=== PATIENT | female | born 1970 | race Caucasian/White ===

== ENCOUNTER 2018-08-03 21:32 | Inpatient (IN) | payer OTHER ==
--- NOTE | 2018-08-03 22:42 | PDOC ---
History of Present Illness <Roxanne Kwan - Last Filed: 08/04/18 02:16> - General History Source: Patient Exam Limitations: No Limitations - History of Present Illness Initial Comments: 08/03/18 22:23 Patient is a 47 year old female with h/o cholecystectomy, chronic back pain, anxiety, depression, hammer toe surgery c/o nausea, vomiting, upper abdominal pain x 4 days. Pain is in the epigastric area and radiates to the back 10/10 sharp, stabbing, continuous. States that she had dark urine on Sunday and Sunday of this week, now clear straw color. She has been having many episode of bilious vomiting since Sunday. She has also been having on color stools. Patient is status post cholecystectomy on 06/18/18 at [facility]. Postoperatively states she has no complications until 4 days ago. States that every time that she drinks milk or have fatty foods she has upper abdominal pain. Patient had postop follow-up on July 11 and was told every thing was normal. Next scheduled postop care is August 22. She denies any fever, chills, dysuria. PMD: Dr. Longoria PMHX: as above PSOCHX: (+) cig 3/day, neg etoh, neg drug ALL: NKDA GENERAL/CONSTITUTIONAL: No fever or chills. No weakness. No weight change. HEAD, EYES, EARS, NOSE AND THROAT: No change in vision. No ear pain or discharge. No sore throat. CARDIOVASCULAR: No chest pain or shortness of breath. RESPIRATORY: No cough, wheezing, or hemoptysis. GASTROINTESTINAL: (+) nausea, vomiting, diarrhea or constipation. No rectal bleeding. GENITOURINARY: No dysuria, frequency, or change in urination. MUSCULOSKELETAL: No joint or muscle swelling or pain. No neck or back pain. SKIN AND BREASTS: No rash or easy bruising. NEUROLOGIC: No headache, vertigo, loss of consciousness, or loss of sensation. PSYCHIATRIC: No depression or anxiety. ENDOCRINE: No increased thirst. No abnormal weight change. HEMATOLOGIC/LYMPHATIC: No anemia, easy bleeding, or history of blood clots. ALLERGIC/IMMUNOLOGIC: No hives or skin allergy. No latex allergy. GENERAL: The patient is awake, alert, and fully oriented, in moderate distress. HEAD: Normal with no signs of trauma. EYES: Pupils equal, round and reactive to light, extraocular movements intact, sclera icteric, conjunctiva normal. ENT: Ears normal, nares patent, oropharynx clear without exudates. Moist mucous membranes. NECK: Normal range of motion, supple without lymphadenopathy, JVD, or masses. LUNGS: Breath sounds equal, clear to auscultation bilaterally. No wheezes, and no crackles. HEART: Regular rate and rhythm, normal S1 and S2 without murmur, rub. ABDOMEN: Soft, (+) tenderness to the epigastrium and back, (+) distention, normoactive bowel sounds. No guarding, no rebound. No masses. EXTREMITIES: Normal range of motion, no edema. No clubbing or cyanosis. No cords, erythema, or tenderness. NEUROLOGICAL: Cranial nerves II through XII grossly intact. Normal speech, normal gait. PSYCH: Normal mood, normal affect. SKIN: mildly jaundiced, Warm, Dry, normal turgor, no rashes or lesions noted. <Dyllan Welch - Last Filed: 08/04/18 03:10> - General Chief Complaint: Nausea/Vomiting Stated Complaint: VOMITING Past History <Roxanne Kwan - Last Filed: 08/04/18 02:16> - Suicide/Smoking/Psychosocial Hx Smoking History: Current every day smoker Number of Cigarettes Smoked Daily: 3 Information on smoking cessation initiated: Yes Hx Alcohol Use: No Drug/Substance Use Hx: No <Dyllan Welch - Last Filed: 08/04/18 03:10> - Past Medical History Allergies/Adverse Reactions: Allergies Allergy/AdvReac Type Severity Reaction Status Date / Time No Known Allergies Allergy Verified 08/04/18 03:07 Home Medications: Ambulatory Orders Levomilnacipran HCl [Fetzima] 80 mg PO DAILY 08/04/18 Losartan Potassium 100 mg PO DAILY 08/04/18 *Physical Exam - Vital Signs Last Vital Signs Temp Pulse Resp BP Pulse Ox 98 F 85 20 145/89 97 08/03/18 21:37 08/03/18 21:37 08/03/18 21:37 08/03/18 21:37 08/03/18 21:37 <Roxanne Kwan - Last Filed: 08/04/18 02:16> - Vital Signs Last Vital Signs Temp Pulse Resp BP Pulse Ox 98 F 85 20 145/89 97 08/03/18 21:37 08/03/18 21:37 08/03/18 21:37 08/03/18 21:37 08/03/18 21:37 <Dyllan Welch - Last Filed: 08/04/18 03:10> ED Treatment Course - LABORATORY CBC & Chemistry Diagram: 08/03/18 22:50 08/03/18 22:50 - ADDITIONAL ORDERS Additional order review: Laboratory Results 08/03/18 08/03/18 22:50 22:50 Sodium 138 Potassium 3.5 Chloride 102 Carbon Dioxide 27 Anion Gap 9 BUN 9.5 Creatinine 0.6 Est GFR (CKD-EPI)AfAm 127.58 Est GFR (CKD-EPI)NonAf 110.08 Random Glucose 127 H Calcium 9.5 Total Bilirubin 2.8 H AST 401 H ALT 624 H Alkaline Phosphatase 563 H Total Protein 7.3 Albumin 3.9 Total Amylase 123 H Lipase 2489 H Serum , Qual Negative 08/03/18 22:50 RBC 4.60 MCV 90.8 MCHC 33.8 RDW 14.4 MPV 12.3 H Neutrophils % 72.3 Lymphocytes % 21.7 Monocytes % 4.7 Eosinophils % 0.3 Basophils % 1.0 - RADIOLOGY Radiology Studies Ordered: Category Date Time Status ABDOMEN US -LIMITED [US] Stat Ultrasound 08/04/18 01:50 Taken <Roxanne Kwan - Last Filed: 08/04/18 02:16> - LABORATORY CBC & Chemistry Diagram: 08/03/18 22:50 08/03/18 22:50 <Dyllan Welch - Last Filed: 08/04/18 03:10> Medical Decision Making - Medical Decision Making 08/04/18 02:16 Patient Name: DOMINICK JAVIER THIS IS A PRELIMINARY REPORT FROM [facility] DATE OF SERVICE: 2018-08-04 01:52:32 IMAGES: 35 EXAM: ABDOMEN US -LIMITED , right upper quadrant and limited abdominal duplex HISTORY: Right upper quadrant pain COMPARISON: None. FINDINGS: Right upper quadrant ultrasound:The liver demonstrates minimal biliary duct dilation. Status post cholecystectomy. The CBD is dilated and [id number] millimeters in diameter. No CBD stones identified. Right kidney measures 10.9centimeters in length and is unremarkable. The visualized aorta and IVC are normal. Pancreas is partially obscured, but appears normal. Abdominal duplex: The main portal vein demonstrates normal hepatopedal flow. IMPRESSION: Moderate CBD dilation and minimal intrahepatic biliary duct dilation without a discrete CBD stone identified. <Roxanne Kwan - Last Filed: 08/04/18 02:16> - Medical Decision Making 08/03/18 22:23 Patient is a 47 year old female with h/o cholecystectomy, chronic back pain, anxiety, depression, hammer toe surgery c/o nausea, vomiting, upper abdominal pain x 4 days. Pain is in the epigastric area and radiates to the back 10/ sharp, stabbing, continuous. States that she had dark urine on Sunday and Sunday of this week, now clear straw color. She has been having many episode of bilious vomiting since Sunday. She has also been having on color stools. Patient is status post cholecystectomy on 06/18/18 at [facility]. Postoperatively states she has no complications until 4 days ago. States that every time that she drinks milk or have fatty foods she has upper abdominal pain. Patient had postop follow-up on July 11 and was told every thing was normal. Next scheduled postop care is August 22. She denies any fever, chills, dysuria. Patient is post operative cystectomy but with symptoms consistent with pancreatitis, obstruction of billary duct We'll get labs, CT abdomen and pelvis. Possible admission Refused pain meds currently. 08/04/18 00:59 Patient Full Name: CONCEPCION TAN Patient Accession No: [id number] Patient : 1970 Reason for Exam: r/o pancreatitis Referring Physician: Patient Name: DOMINICK JAVIER THIS IS A PRELIMINARY REPORT FROM [facility] DATE OF SERVICE: 2018-08-04 00:25:46 IMAGES: 466 EXAM: ABDOMEN \T\ PELVIS CT WITH CONTR HISTORY: Rule out pancreatitis COMPARISON: None. FINDINGS: Lung bases are clear. The visualized cardiac chambers are normal size and configuration. Status post cholecystectomy. There is mild hepatic biliary duct dilation and periportal edema. The common bile duct is dilated to 1.3 cm. No radiopaque CBD stones identified. There is mild dilation of the pancreatic duct up to 3 mm. No pancreatic inflammation. Normal spleen, adrenal glands and kidneys. The stomach and abdominal small and large bowel are normal. There is no aortic aneurysm. There is no significant retroperitoneal lymphadenopathy. The pelvic small and large bowel are normal. The appendix is normal. The uterus and adnexal structures are normal. Urinary bladder is unremarkable. There is no pelvic free fluid. No discrete pelvic lymphadenopathy is identified. IMPRESSION: Moderate CBD dilation and mild hepatic biliary duct and pancreas duct dilation and mild periportal edema but no pancreatic inflammation or discrete CBD stone. Postoperative CBD stricture is considered. One or more of the following dose reduction techniques were used: automated exposure control, adjustment of the mA and/or kV according to patient size, use of iterative reconstructive technique. THIS DOCUMENT HAS BEEN ELECTRONICALLY SIGNED Charlie Nguyen MD 08/04/2018 00:53 BARBARA Mustafa Please call [facility] In[facility] [phone] with questions. INTERPRETING RADIOLOGIST: Lizandro Nguyen MD Electronically Signed: Aug 04, 2018 12:54AM EDT 08/04/18 01:00 Laboratory Tests 08/03/18 08/03/18 22:50 22:50 WBC 7.3 Hgb 14.1 Hct 41.7 Plt Count 181 Sodium 138 Potassium 3.5 Chloride 102 Carbon Dioxide 27 Anion Gap 9 BUN 9.5 Creatinine 0.6 Random Glucose 127 H Calcium 9.5 Total Bilirubin 2.8 H AST 401 H ALT 624 H Alkaline Phosphatase 563 H Total Amylase 123 H Lipase 2489 H 08/04/18 03:04 Patient Full Name: CONCEPCION TAN Patient Accession No: [id number] Patient : 1970 Reason for Exam: ruq pain Referring Physician: ARIELLE DURON Patient Name: DOMINICK JAVIER THIS IS A PRELIMINARY REPORT FROM [facility] DATE OF SERVICE: 2018-08-04 01:52:32 IMAGES: 35 EXAM: ABDOMEN US -LIMITED , right upper quadrant and limited abdominal duplex HISTORY: Right upper quadrant pain COMPARISON: None. FINDINGS: Right upper quadrant ultrasound:The liver demonstrates minimal biliary duct dilation. Status post cholecystectomy. The CBD is dilated and [id number] millimeters in diameter. No CBD stones identified. Right kidney measures 10.9centimeters in length and is unremarkable. The visualized aorta and IVC are normal. Pancreas is partially obscured, but appears normal. Abdominal duplex: The main portal vein demonstrates normal hepatopedal flow. IMPRESSION: Moderate CBD dilation and minimal intrahepatic biliary duct dilation without a discrete CBD stone identified. THIS DOCUMENT HAS BEEN ELECTRONICALLY SIGNED Charlie Nguyen MD 08/04/2018 02:11 BARBARA Schultz. Please call [facility] Instructor [phone] with questions. INTERPRETING RADIOLOGIST: Lizandro Nguyen MD Electronically Signed: Aug 04, 2018 02:13AM EDT 08/04/18 03:08 Patient admitted to the hospitalist <Dyllan Welch - Last Filed: 08/04/18 03:10> *DC/Admit/Observation/Transfer <Roxanne Kwan - Last Filed: 08/04/18 02:16> - Discharge Dispostion Decision to Admit order: Yes <Dyllan Welch - Last Filed: 08/04/18 03:10> Diagnosis at time of Disposition: Transaminitis Nausea & vomiting Qualifiers: Vomiting type: bilious vomiting Qualified Code(s): R11.14 - Bilious vomiting Abdominal pain Qualifiers: Abdominal location: epigastric Qualified Code(s): R10.13 - Epigastric pain - Discharge Dispostion Condition at time of disposition: Stable
[2018-08-03] MEDS ORDERED: ONDANSETRON 4 MG/2 ML VIAL IVPUSH ONE (22:48)
[2018-08-03] MEDS ORDERED: SODIUM CHLORIDE 0.9% 500 ML INFUS.BAG IV ONE (22:48)
[2018-08-03] MEDS ORDERED: ONDANSETRON 4 MG/2 ML VIAL ONE (23:04)
[2018-08-03 23:10] LABS: EOS % 0.3 % (0-4.5); HEMATOCRIT 41.7 % (32.4-45.2); HEMOGLOBIN 14.1 GM/dL (10.7-15.3); LYMPH % 21.7 % (8-40); MCH 30.7 pg (25.7-33.7); MCHC 33.8 g/dl (32.0-36.0); MEAN CELL VOLUME 90.8 fl (80-96); MEAN PLT VOLUME 12.3 fl (7.5-11.1); MONO % 4.7 % (3.8-10.2); NEUT % 72.3 % (42.8-82.8); PLATELET COUNT 181 K/MM3 (134-434); RDW 14.4 % (11.6-15.6); WHITE BLOOD COUNT 7.3 K/mm3 (4.0-10.0)
[2018-08-03 23:27] LABS: ALBUMIN 3.9 g/dl (3.4-5.0); BILIRUBIN,TOTAL 2.8 mg/dL (0.2-1); BLOOD UREA NITROGEN 9.5 mg/dL (7-18); CALCIUM 9.5 mg/dL (8.5-10.1); CREATININE 0.6 mg/dL (0.55-1.3); POTASSIUM 3.5 mmol/L (3.5-5.1); TOT PROT 7.3 g/dl (6.4-8.2)
[2018-08-04] MEDS ORDERED: morphine CARPU-JECT 2 MG/1 ML DISP.SYRIN IVPUSH ONE (02:17)
[2018-08-04] MEDS ORDERED: MORPHINE SULFATE 2 MG/ML VIAL IVPUSH ONE (02:17)
[2018-08-04] MEDS ORDERED: morphine SULFATE 4 MG/ML VIAL ONE (02:22)
--- NOTE | 2018-08-04 03:04 | HP ---
Admitting History and Physical - Primary Care Physician PCP: Silvia Matta - Admission Chief Complaint: c/o nausea, vomiting, upper abd/epigastric abdominal pain radiating to back History of Present Illness: 47 year old female with PMHX of HTN, anxiety, depression, chronic back pain, past surgical history cholecystectomy ( at [facility] with Dr. caballero) Patient post cholecystectomy had no acute complication during sx , had follow up July 11 with normal finding next visit scheduled postop care is August. Patient arrived to ED today with c/o of nausea, vomiting, upper abdominal pain. Pain starts at epigastric area and radiates to the back 10/10 sharp, stabbing, continuous pain. As per patient had dark urine initially on Sunday and Sunday of this week, now clear. She has been having bilious/brownish kind of vomiting since Sunday. No vomiting noted since in ED. History Source: Patient Limitations to Obtaining History: No Limitations - Past Medical History Cardiovascular: Yes: HTN Gastrointestinal: Yes: Other (s/p cholecystomy june) Psych: Yes: Anxiety, Depression Musculoskeletal: Yes: Chronic low back pain - Past Surgical History Past Surgical History: Yes: Cholecystectomy (june) - Smoking History Smoking history: Current every day smoker Aproximately how many cigarettes per day: 3 - Alcohol/Substance Use Hx Alcohol Use: No History of Substance Use: reports: None - Social History ADL: Independent History of Recent Travel: No Home Medications - Allergies Allergies/Adverse Reactions: Allergies Allergy/AdvReac Type Severity Reaction Status Date / Time No Known Allergies Allergy Verified 08/04/18 03:07 - Home Medications Home Medications: Ambulatory Orders Diltiazem HCl [Diltiazem 24Hr Cd] 180 mg PO DAILY 08/04/18 Ibuprofen 800 mg PO PRN PRN 08/04/18 Levomilnacipran HCl [Fetzima] 80 mg PO DAILY 08/04/18 Losartan Potassium 100 mg PO DAILY 08/04/18 Mirtazapine [Remeron -] 45 mg PO DAILY 08/04/18 Family Disease History - Family Disease History Family Disease History: Diabetes: Father, Heart Disease: Father, Mother (breast ca), Other: Mother Review of Systems - Review of Systems Constitutional: reports: No Symptoms Eyes: reports: No Symptoms HENT: reports: No Symptoms Neck: reports: No Symptoms Cardiovascular: reports: No Symptoms Respiratory: reports: No Symptoms Gastrointestinal: reports: Abdominal Pain, Vomiting Genitourinary: reports: Burning, Flank Pain, Urgency Breasts: reports: No Symptoms Reported Musculoskeletal: reports: Back Pain Integumentary: reports: No Symptoms Neurological: reports: No Symptoms Endocrine: reports: No Symptoms Hematology/Lymphatic: reports: No Symptoms Psychiatric: reports: Anxiety, Depression Physical Examination Vital Signs: Vital Signs Temperature 98 F 08/03/18 21:37 Pulse Rate 85 08/03/18 21:37 Respiratory Rate 20 08/03/18 21:37 Blood Pressure 145/89 08/03/18 21:37 O2 Sat by Pulse Oximetry (%) 97 08/03/18 21:37 Constitutional: Yes: Well Nourished, Anxious Eyes: Yes: WNL, Conjunctiva Clear, EOM Intact HENT: Yes: WNL, Atraumatic, Normocephalic Neck: Yes: WNL, Supple, Trachea Midline Cardiovascular: Yes: WNL, Regular Rate and Rhythm Respiratory: Yes: WNL, Regular, CTA Bilaterally Gastrointestinal: Yes: Soft, Tenderness, Tenderness, Epigastrium, Vomiting Renal/: Yes: CVA Tenderness - Left, CVA Tenderness - Right Musculoskeletal: Yes: Back Pain Extremities: Yes: WNL Edema: No Integumentary: Yes: WNL Neurological: Yes: WNL, Alert, Oriented Labs: CBC, BMP 08/03/18 22:50 08/03/18 22:50 Problem List - Problems (1) Right upper quadrant abdominal pain Assessment/Plan: EXAM: ABDOMEN \T\ PELVIS CT WITH CONTR HISTORY: Rule out pancreatitis COMPARISON: None. FINDINGS: Lung bases are clear. The visualized cardiac chambers are normal size and configuration. Status post cholecystectomy. There is mild hepatic biliary duct dilation and periportal edema. The common bile duct is dilated to 1.3 cm. No radiopaque CBD stones identified. There is mild dilation of the pancreatic duct up to 3 mm. No pancreatic inflammation. Normal spleen, adrenal glands and kidneys. The stomach and abdominal small and large bowel are normal. There is no aortic aneurysm. There is no significant retroperitoneal lymphadenopathy. The pelvic small and large bowel are normal. The appendix is normal. The uterus and adnexal structures are normal. Urinary bladder is unremarkable. There is no pelvic free fluid. No discrete pelvic lymphadenopathy is identified. IMPRESSION: Moderate CBD dilation and mild hepatic biliary duct and pancreas duct dilation and mild periportal edema but no pancreatic inflammation or discrete CBD stone. Postoperative CBD stricture is considered. One or more of the following dose reduction techniques were used: automated exposure control, adjustment of the mA and/or kV according to patient size, use of iterative reconstructive technique. EXAM: ABDOMEN US -LIMITED , right upper quadrant and limited abdominal duplex HISTORY: Right upper quadrant pain COMPARISON: None. FINDINGS: Right upper quadrant ultrasound:The liver demonstrates minimal biliary duct dilation. Status post cholecystectomy. The CBD is dilated and millimeters in diameter. No CBD stones identified. Right kidney measures 10.9centimeters in length and is unremarkable. The visualized aorta and IVC are normal. Pancreas is partially obscured, but appears normal. Abdominal duplex: The main portal vein demonstrates normal hepatopedal flow. IMPRESSION: Moderate CBD dilation and minimal intrahepatic biliary duct dilation without a discrete CBD stone identified. - pain management - IV fluids 1 L given in ED, continue IVF - Zofran IV puah 4 mg q6 prn - follow up GI and surgery consult - Code(s): R10.11 - RIGHT UPPER QUADRANT PAIN (2) Common bile duct (CBD) stricture Assessment/Plan: EXAM: ABDOMEN \T\ PELVIS CT WITH CONTR HISTORY: Rule out pancreatitis COMPARISON: None. FINDINGS: Lung bases are clear. The visualized cardiac chambers are normal size and configuration. Status post cholecystectomy. There is mild hepatic biliary duct dilation and periportal edema. The common bile duct is dilated to 1.3 cm. No radiopaque CBD stones identified. There is mild dilation of the pancreatic duct up to 3 mm. No pancreatic inflammation. Normal spleen, adrenal glands and kidneys. The stomach and abdominal small and large bowel are normal. There is no aortic aneurysm. There is no significant retroperitoneal lymphadenopathy. The pelvic small and large bowel are normal. The appendix is normal. The uterus and adnexal structures are normal. Urinary bladder is unremarkable. There is no pelvic free fluid. No discrete pelvic lymphadenopathy is identified. IMPRESSION: Moderate CBD dilation and mild hepatic biliary duct and pancreas duct dilation and mild periportal edema but no pancreatic inflammation or discrete CBD stone. Postoperative CBD stricture is considered. One or more of the following dose reduction techniques were used: automated exposure control, adjustment of the mA and/or kV according to patient size, use of iterative reconstructive technique. EXAM: ABDOMEN US -LIMITED , right upper quadrant and limited abdominal duplex HISTORY: Right upper quadrant pain COMPARISON: None. FINDINGS: Right upper quadrant ultrasound:The liver demonstrates minimal biliary duct dilation. Status post cholecystectomy. The CBD is dilated and millimeters in diameter. No CBD stones identified. Right kidney measures 10.9centimeters in length and is unremarkable. The visualized aorta and IVC are normal. Pancreas is partially obscured, but appears normal. Abdominal duplex: The main portal vein demonstrates normal hepatopedal flow. IMPRESSION: Moderate CBD dilation and minimal intrahepatic biliary duct dilation without a discrete CBD stone identified. - pain management - IV fluids 1 L given in ED - Zofran IV puah 4 mg q6 prn - follow up LFts, Lipase, amylase trend - follow up GI and surgery consult - Code(s): K83.1 - OBSTRUCTION OF BILE DUCT (3) Vomiting Assessment/Plan: Vomiting - IV fluids - zofran PRN - Code(s): R11.10 - VOMITING, UNSPECIFIED Qualifiers: Vomiting type: bilious vomiting (4) HTN (hypertension) Assessment/Plan: HTN - Continue with Diltiazem and losartan - monitor vitals Code(s): I10 - ESSENTIAL (PRIMARY) HYPERTENSION (5) Depression Assessment/Plan: Depression - continue with Fetzima and Remeron as ordered - monitor for acute behavioral changes Code(s): F32.9 - MAJOR DEPRESSIVE DISORDER, SINGLE EPISODE, UNSPECIFIED Assessment/Plan 47 year old admiited for CBD stricture, s/p cholecystomy , arrived to ED with sharp constant pain upper/epigastric CT abd/pelvis IMPRESSION: Moderate CBD dilation and mild hepatic biliary duct and pancreas duct dilation and mild periportal edema but no pancreatic inflammation or discrete CBD stone. Postoperative CBD stricture is considered. EXAM: ABDOMEN US -LIMITED , right upper quadrant IMPRESSION: Moderate CBD dilation and minimal intrahepatic biliary duct dilation without a discrete CBD stone identified. - pain management - IV fluids 1 L given in ED - Zofran IV puah 4 mg q6 prn - follow LFTs, lipase, amylase - follow up GI and surgery consult HTN - Continue with losartan and diltiazem Depression - Continue with remeron and fetzima - Visit type - Emergency Visit Emergency Visit: Yes Care time: The patient presented to the Emergency Department on the above date and was hospitalized for further evaluation of their emergent condition. - New Patient This patient is new to me today: Yes Date on this admission: 08/04/18 - Critical Care Critical Care patient: No
[2018-08-04] MEDS ORDERED: ONDANSETRON 4 MG/2 ML VIAL IVPUSH SCH (04:00)
[2018-08-04 09:49] LABS: BASO % 0.7 % (0-2.0); EOS % 1.8 % (0-4.5); HEMATOCRIT 36.1 % (32.4-45.2); HEMOGLOBIN 12.2 GM/dL (10.7-15.3); LYMPH % 38.3 % (8-40); MCH 30.9 pg (25.7-33.7); MCHC 33.9 g/dl (32.0-36.0); MEAN CELL VOLUME 91.2 fl (80-96); MEAN PLT VOLUME 11.8 fl (7.5-11.1); MONO % 9.1 % (3.8-10.2); NEUT % 50.1 % (42.8-82.8); RBC 3.96 M/mm3 (3.60-5.2); WHITE BLOOD COUNT 5.2 K/mm3 (4.0-10.0)
[2018-08-04] MEDS ORDERED: LEVOMILNACIPRAN HCL 80 MG PO SCH (10:00)
[2018-08-04 10:02] LABS: INR 1.03 (0.83-1.09); PROTHROMBIN TIME (PATIENT) 12.1 SEC (9.7-13.0)
[2018-08-04 10:05] LABS: ACTIVATED PTT 30.1 SECONDS (25.2-36.5)
[2018-08-04 10:10] LABS: ALBUMIN 3.2 g/dl (3.4-5.0); BILIRUBIN,TOTAL 3.6 mg/dL (0.2-1); BLOOD UREA NITROGEN 7.5 mg/dL (7-18); CALCIUM 8.8 mg/dL (8.5-10.1); CREATININE 0.6 mg/dL (0.55-1.3); POTASSIUM 3.1 mmol/L (3.5-5.1)
--- NOTE | 2018-08-04 10:20 | CON.GI ---
Consult Consult Specialty:: GI Referred by:: Hospitalist Service Reason for Consultation:: Abdominal pain and abnormal liver chemistries - History of Present Illness Chief Complaint: Episodic abdominal pain after eating History of Present Illness: 47F admitted through [facility] ER for evaluation of nausea, vomiting and upper abdominal pain. Her pain began early yesterday after drinking coffee with milk. It persisted through the day and became much worse along with the associated nausea and vomiting after eating chicken parmigiana and chicken soup. She had similar abdominal discomfort after eating this past sunday and intermittently since her Lap Mirlande 04/23 at [facility] but not to this extent. Her appetite has been diminished since the surgery. Her urine was also noted dark yesterday. In ED, tranasminases were elevated as was ALP and bilirubin. Vitals were stable and she was afebrile. She had a CT scan revealing dilated CBD and and US confirming dilated CBD of 13mm along with dilated intrahepatic ducts. She continues to have pain but to a lesser degree. She believes that she had an EGD and colonoscopy some years ago that were OK. There is no family history of pancreatic cancer, colon cancer or other GI cancer. - History Source History Provided By: Patient - Past Medical History Cardio/Vascular: Yes: HTN Hepatobiliary: Yes: Cholelithiasis ...LMP: 07/05/18 ...: No Psych: Yes: Anxiety, Depression, Panic Musculoskeletal: Yes: Chronic low back pain - Past Surgical History Past Surgical History: Yes: Cholecystectomy (june) Additional Surgical History: Lumbar spine surgery, hammer toe surgery b/l feet - Alcohol/Substance Use Hx Alcohol Use: No History of Substance Use: reports: None - Smoking History Smoking history: Current every day smoker Aproximately how many cigarettes per day: 3 - Social History Usual Living Arrangement: Alone ADL: Independent Occupation: Unemployed Place of : [facility] History of Recent Travel: No Home Medications - Allergies Allergies/Adverse Reactions: Allergies Allergy/AdvReac Type Severity Reaction Status Date / Time No Known Allergies Allergy Verified 08/04/18 03:07 - Home Medications Home Medications: Ambulatory Orders Diltiazem HCl [Diltiazem 24Hr Cd] 180 mg PO DAILY 08/04/18 Ibuprofen 800 mg PO PRN PRN 08/04/18 Levomilnacipran HCl [Fetzima] 80 mg PO DAILY 08/04/18 Losartan Potassium 100 mg PO DAILY 08/04/18 Mirtazapine [Remeron -] 45 mg PO DAILY 08/04/18 Family Disease History - Family Disease History Family Disease History: Diabetes: Father (: 68: Some form of cancer (not GI) ), Heart Disease: Father, Mother (Mother: : 78: Heart Problems. H&P lists breast cancer, however she did not tell that liza me.), Other: Father, Mother, Brother (2, healthy), Sister (1, healthy), Daughter (1, healthy) Review of Systems - Review of Systems Constitutional: reports: Loss of Appetite. denies: Chills Cardiovascular: denies: Chest Pain Respiratory: denies: SOB Gastrointestinal: reports: Abdominal Pain, Constipation, Indigestion, Nausea, Vomiting. denies: Diarrhea, Dysphagia, Melena, Rectal Bleeding Psychiatric: reports: Anxiety, Depression Physical Exam-GI Vital Signs: Vital Signs Temperature 98.5 F 08/04/18 04:50 Pulse Rate 61 08/04/18 04:50 Respiratory Rate 18 08/04/18 04:50 Blood Pressure 125/74 08/04/18 04:50 O2 Sat by Pulse Oximetry (%) 100 08/04/18 04:14 Constitutional: Yes: Calm Eyes: No: Sclera Icterus Cardiovascular: Yes: Regular Rate and Rhythm Respiratory: Yes: CTA Bilaterally Gastrointestinal Inspection: Yes: Scars (healed upper abdominal trochar scars). No: Distention ...Auscultate: Yes: Normoactive Bowel Sounds ...Palpate: Yes: Soft, Tenderness (TTP mid upper abdomen) ...Percussion: No: Tympanitic Edema: No (No LE edema) Neurological: Yes: Alert Labs: CBC, BMP 08/04/18 09:20 INR, PTT INR 1.03 (0.83-1.09) 08/04/18 09:20 Hepatic Panel Total Bilirubin 3.6 mg/dL (0.2-1) H 08/04/18 09:20 AST 520 U/L (15-37) H 08/04/18 09:20 ALT 696 U/L (13-61) H 08/04/18 09:20 Alkaline Phosphatase 473 U/L (45-117) H 08/04/18 09:20 Albumin 3.2 g/dl (3.4-5.0) L 08/04/18 09:20 Imaging - Results Cat Scan: Image Reviewed Ultrasound: Report Reviewed Problem List - Problems (1) Acute gallstone pancreatitis Assessment/Plan: Suspect retained CBD stone as the cause of Ms. Martins's current problems as well as her intermittent post lap mirlande post prandial dyspeptic complaints. Bilirubin has risen on today's labs. Discussed ERCP with Ms. Martins for further evaluation, stone extraction if necessary and to exclude alternate pathology such as stricture. DIscussed potential risks of the procedure like but not limited to bleeding, perforation requiring surgery to repair, infection, sedation medication effects, worsening of pancreatitis (5-10% of cases per the literature) all of which could be potentially life threatening. She has agreed to the procedure. She was given a diet this morning and drank coffee/had some eggs. This makes intubation more risky at this time. Plan for ERCP tomorrow, later in the day with the patient being NPO if clinically warranted Advise: NPO except meds IV hydration: ordered LR @ 200cc per hour Added Zosyn 3.375g q 8 hours for biliary tract coverage, not so much the pancreatitis AM Labs Type and cross, coags ordered today Code(s): K85.10 - BILIARY ACUTE PANCREATITIS WITHOUT NECROSIS OR INFECTION
--- NOTE | 2018-08-04 10:25 | PN ---
Progress Note, Physician - Current Medication List Current Medications: Active Medications Diltiazem HCl (Cardizem Cd -) 180 mg PO DAILY LOR Losartan Potassium (Cozaar -) 100 mg PO DAILY LOR Mirtazapine (Remeron -) 45 mg PO HS LOR Non-Formulary Medication (Levomilnacipran Hcl [Fetzima]) 80 mg PO DAILY LOR Ondansetron HCl (Zofran Injection) 4 mg IVPUSH Q6H-IV LOR - Objective Vital Signs: Vital Signs Temperature 98.5 F 08/04/18 04:50 Pulse Rate 61 08/04/18 04:50 Respiratory Rate 18 08/04/18 04:50 Blood Pressure 125/74 08/04/18 04:50 O2 Sat by Pulse Oximetry (%) 100 08/04/18 04:14 Labs: CBC, BMP 08/04/18 09:20 08/04/18 09:20 INR, PTT INR 1.03 (0.83-1.09) 08/04/18 09:20 - ....Imaging Cat Scan: Report Reviewed (ABDOMEN \T\ PELVIS CT WITH CONTR HISTORY: Rule out pancreatitis COMPARISON: None. FINDINGS: Lung bases are clear. The visualized cardiac chambers are normal size and configuration. Status post cholecystectomy. There is mild hepatic biliary duct dilation and periportal edema. The common bile duct is dilated to 1.3 cm. No radiopaque CBD stones identified. There is mild dilation of the pancreatic duct up to 3 mm. No pancreatic inflammation. Normal spleen, adrenal glands and kidneys. The stomach and abdominal small and large bowel are normal. There is no aortic aneurysm. There is no significant retroperitoneal lymphadenopathy. The pelvic small and large bowel are normal. The appendix is normal. The uterus and adnexal structures are normal. Urinary bladder is unremarkable. There is no pelvic free fluid. No discrete pelvic lymphadenopathy is identified. IMPRESSION: Moderate CBD dilation and mild hepatic biliary duct and pancreas duct dilation and mild periportal edema but no pancreatic inflammation or discrete CBD stone. Postoperative CBD stricture is considered. One or more of the following dose reduction techniques were used: automated exposure control, adjustment of the mA and/or kV according to patient size, use of iterative reconstructive technique. EXAM: ABDOMEN US -LIMITED , right upper quadrant and limited abdominal duplex HISTORY: Right upper quadrant pain COMPARISON: None. FINDINGS: Right upper quadrant ultrasound:The liver demonstrates minimal biliary duct dilation. Status post cholecystectomy. The CBD is dilated and [id number] millimeters in diameter. No CBD stones identified. Right kidney measures 10.9centimeters in length and is unremarkable. The visualized aorta and IVC are normal. Pancreas is partially obscured, but appears normal. Abdominal duplex: The main portal vein demonstrates normal hepatopedal flow. IMPRESSION: Moderate CBD dilation and minimal intrahepatic biliary duct dilation without a discrete CBD stone identified.) Ultrasound: Report Reviewed (EXAM: ABDOMEN US -LIMITED , right upper quadrant and limited abdominal duplex HISTORY: Right upper quadrant pain COMPARISON: None. FINDINGS: Right upper quadrant ultrasound:The liver demonstrates minimal biliary duct dilation. Status post cholecystectomy. The CBD is dilated and millimeters in diameter. No CBD stones identified. Right kidney measures 10.9centimeters in length and is unremarkable. The visualized aorta and IVC are normal. Pancreas is partially obscured, but appears normal. Abdominal duplex: The main portal vein demonstrates normal hepatopedal flow. IMPRESSION: Moderate CBD dilation and minimal intrahepatic biliary duct dilation without a discrete CBD stone identified.) Problem List - Problems (1) Acute gallstone pancreatitis Assessment/Plan: MUST R/O STONES VS STRICTURE MRCP GI AND ID CONSULT SURGICAL CONSULT NPO IV ABX PER ID Code(s): K85.10 - BILIARY ACUTE PANCREATITIS WITHOUT NECROSIS OR INFECTION (2) Abnormal LFTs Assessment/Plan: ABOVE Code(s): R94.5 - ABNORMAL RESULTS OF LIVER FUNCTION STUDIES (3) Common bile duct (CBD) stricture Assessment/Plan: ABOVE Code(s): K83.1 - OBSTRUCTION OF BILE DUCT (4) HTN (hypertension) Assessment/Plan: Vital Signs Period Temp Pulse Resp BP Sys/Ceron Pulse Ox Last 24 Hr 97.9 F-98.5 F 55-85 18-20 117-145/66-89 97-100 Code(s): I10 - ESSENTIAL (PRIMARY) HYPERTENSION (5) S/P laparoscopic cholecystectomy Assessment/Plan: SURGICAL CONSULT Code(s): Z90.49 - ACQUIRED ABSENCE OF OTHER SPECIFIED PARTS OF DIGESTIVE TRACT
[2018-08-04] MEDS ORDERED: PIPERACILLIN/TAZOB 3.375 GM 3.375 GM in DEXTROSE 5%-WATER - 50 ML IVPB SCH (10:45)
[2018-08-04] MEDS ORDERED: PIPERACILLIN/TAZOBACTAM 3.375 GM VIAL IVPB ONE (10:47)
[2018-08-04] MEDS ORDERED: DEXTROSE 5%-WATER - 100 ML IVPB ONE (10:47)
[2018-08-04 11:50] LABS: PLATELET COUNT 146 K/MM3 (134-434)
[2018-08-04] MEDS: LACTATED RINGERS SOLUTION 1,000 ML/1,000 ML INFUS.BAG IV SCH ×2 (12:00→18:10)
[2018-08-04] MEDS: LOSARTAN POTASSIUM 50 MG TABLET (FP) PO SCH (12:01)
[2018-08-04] MEDS: ONDANSETRON 4 MG/2 ML VIAL IVPUSH SCH ×3 (12:01→21:02)
--- NOTE | 2018-08-04 12:46 | CON.ID ---
Consult Consult Specialty:: infectious disease Reason for Consultation:: biliary sepsis - History of Present Illness Chief Complaint: abdominal pain with vomiting History of Present Illness: 47 yo s/p lap choly 06/18 discharged the next day- developed intermittent vomiting on Sunday, abdominal pain started on Sunday, no fevers, +chills came to ED last night with the above complaints ct scan with moderate CBD dilatation, mild hepatic biliary duct and pancreatic duct dilatation noted urine was dark yellow reports nots sexually acitive HIV negative last vomitied last night last BM on - History Source History Provided By: Patient, Medical Record Limitations to Obtaining History: No Limitations - Past Medical History Cardio/Vascular: Yes: HTN Gastrointestinal: Yes: Other (s/p cholecystomy june) Hepatobiliary: Yes: Cholelithiasis ...LMP: 07/05/18 ...: No Psych: Yes: Anxiety, Depression, Panic Musculoskeletal: Yes: Chronic low back pain - Past Surgical History Past Surgical History: Yes: Cholecystectomy (june) Additional Surgical History: Lumbar spine surgery, hammer toe surgery b/l feet - Alcohol/Substance Use Hx Alcohol Use: No History of Substance Use: reports: None - Smoking History Smoking history: Current every day smoker Aproximately how many cigarettes per day: 3 - Social History Usual Living Arrangement: Other ADL: Independent Occupation: Unemployed History of Recent Travel: No Home Medications - Allergies Allergies/Adverse Reactions: Allergies Allergy/AdvReac Type Severity Reaction Status Date / Time No Known Allergies Allergy Verified 08/04/18 03:07 - Home Medications Home Medications: Ambulatory Orders Diltiazem HCl [Diltiazem 24Hr Cd] 180 mg PO DAILY 08/04/18 Ibuprofen 800 mg PO PRN PRN 08/04/18 Levomilnacipran HCl [Fetzima] 80 mg PO DAILY 08/04/18 Losartan Potassium 100 mg PO DAILY 08/04/18 Mirtazapine [Remeron -] 45 mg PO DAILY 08/04/18 Family Disease History - Family Disease History Family Disease History: Diabetes: Father (: 68: Some form of cancer (not GI) ), Heart Disease: Father, Mother (Mother: : 78: Heart Problems. H&P lists breast cancer, however she did not tell that liza me.), Other: Father, Mother, Brother (2, healthy), Sister (1, healthy), Daughter (1, healthy) Review of Systems - Review of Systems Constitutional: reports: Chills Eyes: reports: No Symptoms HENT: reports: No Symptoms. denies: Toothache Neck: reports: No Symptoms Cardiovascular: reports: No Symptoms. denies: Chest Pain Respiratory: reports: No Symptoms. denies: Cough, SOB Gastrointestinal: reports: Abdominal Pain, Vomiting Genitourinary: reports: No Symptoms. denies: Burning, Discharge Integumentary: reports: No Symptoms Neurological: reports: No Symptoms Physical Exam Vital Signs: Vital Signs Temperature 98.5 F 08/04/18 04:50 Pulse Rate 61 08/04/18 04:50 Respiratory Rate 18 08/04/18 04:50 Blood Pressure 125/74 08/04/18 04:50 O2 Sat by Pulse Oximetry (%) 100 08/04/18 04:14 Constitutional: Yes: Well Nourished, No Distress, Calm Eyes: Yes: Conjunctiva Clear, Sclera Icterus HENT: Yes: Atraumatic, Normocephalic Neck: Yes: Supple Cardiovascular: Yes: Regular Rate and Rhythm Respiratory: Yes: Regular, CTA Bilaterally Gastrointestinal: Yes: Normal Bowel Sounds, Soft, Tenderness, Epigastrium ...Rectal Exam: Yes: Deferred Musculoskeletal: Yes: WNL Extremities: Yes: WNL Edema: No Neurological: Yes: Alert, Oriented Labs: CBC, BMP 08/04/18 09:20 08/04/18 09:20 Imaging - Results Cat Scan: Report Reviewed Ultrasound: Report Reviewed Problem List - Problems (1) Right upper quadrant abdominal pain Code(s): R10.11 - RIGHT UPPER QUADRANT PAIN (2) Abnormal LFTs Code(s): R94.5 - ABNORMAL RESULTS OF LIVER FUNCTION STUDIES (3) S/P laparoscopic cholecystectomy Code(s): Z90.49 - ACQUIRED ABSENCE OF OTHER SPECIFIED PARTS OF DIGESTIVE TRACT Assessment/Plan possible gallstone pancreatitis possible choledocholithiasis, ?cbd stricture will continue zosyn MRCP ordered further management per GI
[2018-08-04] MEDS ORDERED: HYDROmorphone HCl 2 MG/ML VIAL IM PRN (14:36)
[2018-08-04] MEDS: HYDROmorphone HCl 2 MG/ML VIAL IVPB PRN ×2 (16:48→20:54)
[2018-08-04] MEDS ORDERED: DEXTROSE 5%-WATER 100 ML IVPB ONE (17:56)
[2018-08-04] MEDS ORDERED: PIPERACILLIN/TAZOBACTAM 4.5 GM VIAL IVPB ONE (17:56)
[2018-08-04] MEDS: PIPERACILLIN/TAZOB 4.5 GM 4.5 GM in DEXTROSE 5%-WATER 100 ML IVPB SCH (18:02)
[2018-08-04] MEDS ORDERED: MIRTAZAPINE 15 MG TABLET (FP) ONE (20:38)
[2018-08-04] MEDS: MIRTAZAPINE 30 MG TABLET (FP) PO SCH (21:02)
[2018-08-04] MEDS ORDERED: ONDANSETRON 4 MG/2 ML VIAL IVPUSH ONE (22:48)
[2018-08-05] MEDS ORDERED: DEXTROSE 5%-WATER 100 ML IVPB ONE ×3 (00:50→17:03)
[2018-08-05] MEDS ORDERED: PIPERACILLIN/TAZOBACTAM 4.5 GM VIAL IVPB ONE ×3 (00:50→17:03)
[2018-08-05] MEDS: PIPERACILLIN/TAZOB 4.5 GM 4.5 GM in DEXTROSE 5%-WATER 100 ML IVPB SCH ×3 (01:24→17:16)
[2018-08-05] MEDS: ONDANSETRON 4 MG/2 ML VIAL IVPUSH SCH ×5 (02:10→21:20)
[2018-08-05 08:12] LABS: HEMATOCRIT 33.7 % (32.4-45.2); HEMOGLOBIN 11.2 GM/dL (10.7-15.3); MCH 30.6 pg (25.7-33.7); MCHC 33.4 g/dl (32.0-36.0); MEAN CELL VOLUME 91.8 fl (80-96); MEAN PLT VOLUME 12.1 fl (7.5-11.1); PLATELET COUNT 131 K/MM3 (134-434); RBC 3.67 M/mm3 (3.60-5.2); RDW 14.3 % (11.6-15.6); WHITE BLOOD COUNT 4.9 K/mm3 (4.0-10.0)
[2018-08-05] MEDS: HYDROmorphone HCl 2 MG/ML VIAL IVPB PRN ×3 (08:19→22:18)
[2018-08-05 08:40] LABS: ALBUMIN 2.7 g/dl (3.4-5.0); BILIRUBIN,TOTAL 1.6 mg/dL (0.2-1); BLOOD UREA NITROGEN 3.6 mg/dL (7-18); CALCIUM 8.4 mg/dL (8.5-10.1); CREATININE 0.6 mg/dL (0.55-1.3); POTASSIUM 3.6 mmol/L (3.5-5.1); TOT PROT 5.3 g/dl (6.4-8.2)
[2018-08-05] MEDS: LOSARTAN POTASSIUM 50 MG TABLET (FP) PO SCH (09:41)
[2018-08-05] MEDS ORDERED: PIPERACILLIN/TAZOB 3.375 GM 3.375 GM in DEXTROSE 5%-WATER - 50 ML IVPB SCH (10:00)
[2018-08-05] MEDS: LACTATED RINGERS SOLUTION 1,000 ML/1,000 ML INFUS.BAG IV SCH (10:45)
[2018-08-05] MEDS ORDERED: INDOMETHACIN 50 MG RECTAL SUPPOSITORY PR ONE ×2 (11:15→12:39)
--- NOTE | 2018-08-05 11:45 | PN ---
Progress Note, Physician Chief Complaint: Elevated LFT Acute gallbladder pancreatitis CBD stricture History of Present Illness: Previous notes and events reviewed awake and alert NAD going for ERCP today complain of nausea and epigastric pain - Current Medication List Current Medications: Active Medications Diltiazem HCl (Cardizem Cd -) 180 mg PO DAILY LOR Last Admin: 08/05/18 09:41 Dose: 180 mg Hydromorphone HCl (Dilaudid Vial -) 2 mg IM Q4H PRN PRN Reason: PAIN LEVEL 6-10 Hydromorphone HCl (Dilaudid Vial -) 2 mg IVPB Q4H PRN PRN Reason: PAIN LEVEL 6-10 Last Admin: 08/05/18 08:19 Dose: 2 mg Lactated Ringer's (Lactated Ringers Solution) 1,000 ml in 1,000 mls @ 200 mls/ hr IV ASDIR LOR Last Admin: 08/05/18 10:45 Dose: Not Given Piperacillin Sod/Tazobactam (Sod 4.5 gm/ Dextrose) 100 mls @ 200 mls/hr IVPB Q8H-IV LOR; Protocol Last Admin: 08/05/18 09:42 Dose: 200 mls/hr Losartan Potassium (Cozaar -) 100 mg PO DAILY LOR Last Admin: 08/05/18 09:41 Dose: 100 mg Mirtazapine (Remeron -) 45 mg PO HS LOR Last Admin: 08/04/18 21:02 Dose: 45 mg Non-Formulary Medication (Levomilnacipran Hcl [Fetzima]) 80 mg PO DAILY LOR Ondansetron HCl (Zofran Injection) 4 mg IVPUSH Q6H-IV LOR Last Admin: 08/05/18 10:43 Dose: 4 mg - Objective Vital Signs: Vital Signs Temperature 98.9 F 08/05/18 09:00 Pulse Rate 69 08/05/18 09:00 Respiratory Rate 18 08/05/18 09:00 Blood Pressure 121/65 08/05/18 09:00 O2 Sat by Pulse Oximetry (%) 94 L 08/05/18 09:00 Constitutional: Yes: No Distress, Calm Eyes: Yes: Conjunctiva Clear HENT: Yes: Atraumatic Cardiovascular: Yes: Regular Rate and Rhythm Respiratory: Yes: Regular, CTA Bilaterally Gastrointestinal: Yes: Normal Bowel Sounds, Soft, Distention, Tenderness (LUQ), Tenderness, Epigastrium Musculoskeletal: Yes: WNL Extremities: Yes: WNL Edema: No Neurological: Yes: Alert, Oriented Psychiatric: Yes: Alert, Oriented Labs: CBC, BMP 08/05/18 07:09 08/05/18 07:09 INR, PTT INR 1.03 (0.83-1.09) 08/04/18 09:20 Problem List - Problems (1) Abnormal LFTs Assessment/Plan: -GI on board -LFTs trending down -AST 203, ALT 495, Alk Phos 392 Code(s): R94.5 - ABNORMAL RESULTS OF LIVER FUNCTION STUDIES (2) Common bile duct (CBD) stricture Assessment/Plan: -GI on board -ERCP ordered -NPO -IV hydration -Abdominal MRI shows numerous CBD stones/choledocolithiasis with intra and extrahepatic biliary ductal dilation with extensive periportal and brandon hepatis edema with edema and fluid extending inferiorly along 2nd portion of duodenum into the hepatorenal fossa with fullness in the pancreatic head but without pancreatic ductal dilation -surgical consult Code(s): K83.1 - OBSTRUCTION OF BILE DUCT (3) HTN (hypertension) Assessment/Plan: -Diltiazem and Losartan Code(s): I10 - ESSENTIAL (PRIMARY) HYPERTENSION (4) Right upper quadrant abdominal pain Assessment/Plan: -GI and ID on board -Zosyn -IV hydration -NPO -no leukocytosis Code(s): R10.11 - RIGHT UPPER QUADRANT PAIN (5) Acute gallstone pancreatitis Assessment/Plan: -GI on board -ERCP ordered -NPO -IV hydration -Abdominal MRI shows numerous CBD stones/choledocolithiasis with intra and extrahepatic biliary ductal dilation with extensive periportal and brandon hepatis edema with edema and fluid extending inferiorly along 2nd portion of duodenum into the hepatorenal fossa with fullness in the pancreatic head but without pancreatic ductal dilation -surgical consult -Zosyn Code(s): K85.10 - BILIARY ACUTE PANCREATITIS WITHOUT NECROSIS OR INFECTION Assessment/Plan see problem list dvt ppx
--- NOTE | 2018-08-05 11:46 | PN ---
Progress Note (short form) - Note Progress Note: no fever or chills still with abdominal pain MRI with choledocholithiasis scheduled for ERCP today Vital Signs Period Temp Pulse Resp BP Sys/Ceron Pulse Ox Last 24 Hr 97.9 F-98.9 F 55-69 18-20 114-125/61-68 100 cor-rrr lungs clear abd soft, midepigastric tenderness to palpation ext no edema CBC, BMP 08/05/18 07:09 08/05/18 07:09 Active Medications Diltiazem HCl (Cardizem Cd -) 180 mg PO DAILY LOR Last Admin: 08/05/18 09:41 Dose: 180 mg Hydromorphone HCl (Dilaudid Vial -) 2 mg IM Q4H PRN PRN Reason: PAIN LEVEL 6-10 Hydromorphone HCl (Dilaudid Vial -) 2 mg IVPB Q4H PRN PRN Reason: PAIN LEVEL 6-10 Last Admin: 08/05/18 08:19 Dose: 2 mg Lactated Ringer's (Lactated Ringers Solution) 1,000 ml in 1,000 mls @ 200 mls/ hr IV ASDIR LOR Last Admin: 08/05/18 10:45 Dose: Not Given Piperacillin Sod/Tazobactam (Sod 4.5 gm/ Dextrose) 100 mls @ 200 mls/hr IVPB Q8H-IV LOR; Protocol Last Admin: 08/05/18 09:42 Dose: 200 mls/hr Losartan Potassium (Cozaar -) 100 mg PO DAILY LOR Last Admin: 08/05/18 09:41 Dose: 100 mg Mirtazapine (Remeron -) 45 mg PO HS [facility] Last Admin: 08/04/18 21:02 Dose: 45 mg Non-Formulary Medication (Levomilnacipran Hcl [Fetzima]) 80 mg PO DAILY LRO Ondansetron HCl (Zofran Injection) 4 mg IVPUSH Q6H-IV LOR Last Admin: 08/05/18 10:43 Dose: 4 mg a/p choledocholithiasis- continue zosyn for ercp today s/p cholycystectomy 06/18 Problem List - Problems (1) Right upper quadrant abdominal pain Code(s): R10.11 - RIGHT UPPER QUADRANT PAIN (2) Abnormal LFTs Code(s): R94.5 - ABNORMAL RESULTS OF LIVER FUNCTION STUDIES (3) S/P laparoscopic cholecystectomy Code(s): Z90.49 - ACQUIRED ABSENCE OF OTHER SPECIFIED PARTS OF DIGESTIVE TRACT
[2018-08-05] MEDS ORDERED: LACTATED RINGERS SOLUTION 1,000 ML/1,000 ML INFUS.BAG IV SCH ×2 (13:45→19:45)
--- NOTE | 2018-08-05 13:48 | PN ---
Progress Note (short form) - Note Progress Note: GI Procedure NOte: Please see ERCP report. There were multiple large and small stones in the CND and left main hepatic duct. Smaller stones were extracted but despite extending the sphincterotomy the larger stones could not be extracted so a 7Fr x 7cm double pigtail stent was inserted. She should be referred to a tertiary care center that can do ultrasonic lithotripsy to remove the residual stones as an outpatient. Actigall should be given until then. Avoid anticoagulants. Continue antiobiotics.
--- NOTE | 2018-08-05 17:03 | CONSULT ---
Consult Consult Specialty:: Surgery Reason for Consultation:: choledocholithiasis - History of Present Illness Chief Complaint: abdominal pain History of Present Illness: 47 year old female with PMHX of HTN, anxiety, depression, chronic back pain, past surgical history cholecystectomy ( at [place]) Patient had no acute complication during sx , had follow up July 11 with normal finding. Patient arrived to ED with c/o of nausea, vomiting, upper abdominal pain. Pain starts at epigastric area and radiates to the back 10/10 sharp, stabbing, continuous pain. As per patient had dark urine initially on Sunday and Sunday of this week, now clear. She has been having bilious/brownish kind of vomiting since Sunday. No vomiting noted since in ED. Imaging studies showed dilated CBD on US and CT, and choledocholithiasis on MRCP. Underwent ERCP, removal of CBD stones, and sphincterotomy today. Has residual large stones in CBD with plans to refer to tertiary care center for possible lithotrypsy. Currently has mild abominal pain. - History Source History Provided By: Patient - Past Medical History Cardio/Vascular: Yes: HTN Gastrointestinal: Yes: Other (s/p cholecystomy june) Hepatobiliary: Yes: Cholelithiasis ...LMP: 07/05/18 ...: No Psych: Yes: Anxiety, Depression, Panic Musculoskeletal: Yes: Chronic low back pain - Past Surgical History Past Surgical History: Yes: Cholecystectomy (june) Additional Surgical History: Lumbar spine surgery, hammer toe surgery b/l feet - Alcohol/Substance Use Hx Alcohol Use: No History of Substance Use: reports: None - Smoking History Smoking history: Current every day smoker Aproximately how many cigarettes per day: 3 - Social History Usual Living Arrangement: Other ADL: Independent Occupation: Unemployed History of Recent Travel: No Home Medications - Allergies Allergies/Adverse Reactions: Allergies Allergy/AdvReac Type Severity Reaction Status Date / Time No Known Allergies Allergy Verified 08/04/18 03:07 - Home Medications Home Medications: Ambulatory Orders Diltiazem HCl [Diltiazem 24Hr Cd] 180 mg PO DAILY 08/04/18 Ibuprofen 800 mg PO PRN PRN 08/04/18 Levomilnacipran HCl [Fetzima] 80 mg PO DAILY 08/04/18 Losartan Potassium 100 mg PO DAILY 08/04/18 Mirtazapine [Remeron -] 45 mg PO DAILY 08/04/18 Family Disease History - Family Disease History Family Disease History: Diabetes: Father (: 68: Some form of cancer (not GI) ), Heart Disease: Father, Mother (Mother: : 78: Heart Problems. H&P lists breast cancer, however she did not tell that liza me.), Other: Father, Mother, Brother (2, healthy), Sister (1, healthy), Daughter (1, healthy) Physical Exam Vital Signs: Vital Signs Temperature 97.8 F 08/05/18 15:14 Pulse Rate 53 L 08/05/18 15:14 Respiratory Rate 18 08/05/18 15:14 Blood Pressure 145/65 08/05/18 15:14 O2 Sat by Pulse Oximetry (%) 98 08/05/18 15:14 Constitutional: Yes: Well Nourished Eyes: Yes: WNL HENT: Yes: Normocephalic Neck: Yes: Supple Cardiovascular: Yes: Regular Rate and Rhythm Respiratory: Yes: CTA Bilaterally Gastrointestinal: Yes: Soft, Tenderness (mild at eppigastric region) ...Rectal Exam: Yes: Deferred Extremities: Yes: WNL Edema: No Wound/Incision: Yes: Other (port sites form LC well healed) Labs: CBC, BMP 08/05/18 07:09 08/05/18 07:09 Imaging - Results Cat Scan: Report Reviewed, Image Reviewed Ultrasound: Report Reviewed, Image Reviewed MRI: Report Reviewed, Image Reviewed Problem List - Problems (1) Choledocholithiasis with obstruction Assessment/Plan: Agree with plan as d/w Dr. Gar to refer to tertiary care center for completion of CBD stone removal. May D/C home in am if LFT's and pancreatic enzymes are WNL. Code(s): K80.51 - CALCULUS OF BILE DUCT W/O CHOLANGITIS OR CHOLECYST W OBST
[2018-08-05] MEDS ORDERED: MIRTAZAPINE 15 MG TABLET (FP) ONE (20:28)
[2018-08-05] MEDS: MIRTAZAPINE 30 MG TABLET (FP) PO SCH (21:21)
[2018-08-06] MEDS ORDERED: DEXTROSE 5%-WATER 100 ML IVPB ONE ×3 (00:41→16:30)
[2018-08-06] MEDS ORDERED: PIPERACILLIN/TAZOBACTAM 4.5 GM VIAL IVPB ONE ×3 (00:41→16:30)
[2018-08-06] MEDS: PIPERACILLIN/TAZOB 4.5 GM 4.5 GM in DEXTROSE 5%-WATER 100 ML IVPB SCH ×3 (01:11→17:09)
[2018-08-06] MEDS: LACTATED RINGERS SOLUTION 1,000 ML/1,000 ML INFUS.BAG IV SCH ×2 (01:11→02:27)
[2018-08-06] MEDS: HYDROmorphone HCl 2 MG/ML VIAL IVPB PRN ×2 (02:27→06:24)
[2018-08-06] MEDS: ONDANSETRON 4 MG/2 ML VIAL IVPUSH SCH ×4 (02:28→20:33)
[2018-08-06 08:40] LABS: BASO % 0.6 % (0-2.0); EOS % 3.2 % (0-4.5); HEMATOCRIT 32.7 % (32.4-45.2); HEMOGLOBIN 10.9 GM/dL (10.7-15.3); LYMPH % 48.6 % (8-40); MCH 30.8 pg (25.7-33.7); MCHC 33.2 g/dl (32.0-36.0); MEAN CELL VOLUME 92.6 fl (80-96); MEAN PLT VOLUME 12.1 fl (7.5-11.1); MONO % 8.3 % (3.8-10.2); NEUT % 39.3 % (42.8-82.8); PLATELET COUNT 136 K/MM3 (134-434); RBC 3.53 M/mm3 (3.60-5.2); RDW 14.3 % (11.6-15.6); WHITE BLOOD COUNT 4.5 K/mm3 (4.0-10.0)
[2018-08-06] MEDS ORDERED: LACTATED RINGERS SOLUTION 1,000 ML/1,000 ML INFUS.BAG IV SCH (08:45)
[2018-08-06 09:09] LABS: ALBUMIN 2.9 g/dl (3.4-5.0); BILIRUBIN,DIRECT 0.7 mg/dL (0.0-0.2); BILIRUBIN,TOTAL 0.9 mg/dL (0.2-1); CALCIUM 8.6 mg/dL (8.5-10.1); CREATININE 0.5 mg/dL (0.55-1.3); POTASSIUM 3.5 mmol/L (3.5-5.1); TOT PROT 5.6 g/dl (6.4-8.2)
[2018-08-06 09:21] LABS: BLOOD UREA NITROGEN 1.5 mg/dL (7-18)
[2018-08-06] MEDS: LOSARTAN POTASSIUM 50 MG TABLET (FP) PO SCH (09:28)
[2018-08-06 11:21] VITALS: BMI 21.6
[2018-08-06] MEDS: oxyCODONE HCL 5 MG TABLET PO PRN ×2 (13:23→20:32)
--- NOTE | 2018-08-06 15:38 | PN ---
Progress Note, Physician Chief Complaint: Elevated LFT Acute gallbladder pancreatitis CBD stricture History of Present Illness: Previous notes and events reviewed awake and alert NAD ERCP done yesterday and still noted with CBD stones complain of RUQ pain beginning to tolerate regular diet - Current Medication List Current Medications: Active Medications Diltiazem HCl (Cardizem Cd -) 180 mg PO DAILY [facility] Last Admin: 08/06/18 09:28 Dose: 180 mg Docusate Sodium (Colace -) 300 mg PO HS [facility] Hydromorphone HCl (Dilaudid Vial -) 2 mg IM Q4H PRN PRN Reason: PAIN LEVEL 4-6 Piperacillin Sod/Tazobactam (Sod 4.5 gm/ Dextrose) 100 mls @ 200 mls/hr IVPB Q8H-IV [facility]; Protocol Last Admin: 08/06/18 09:28 Dose: 200 mls/hr Losartan Potassium (Cozaar -) 100 mg PO DAILY [facility] Last Admin: 08/06/18 09:28 Dose: 100 mg Mirtazapine (Remeron -) 45 mg PO HS [facility] Last Admin: 08/05/18 21:21 Dose: 45 mg Non-Formulary Medication (Levomilnacipran Hcl [Fetzima]) 80 mg PO DAILY [facility] Ondansetron HCl (Zofran Injection) 4 mg IVPUSH Q6H-IV [facility] Last Admin: 08/06/18 15:29 Dose: 4 mg Oxycodone HCl (Roxicodone -) 10 mg PO Q6H PRN PRN Reason: PAIN LEVEL 7-10 Last Admin: 08/06/18 13:23 Dose: 10 mg Zolpidem Tartrate (Ambien -) 5 mg PO HS PRN PRN Reason: INSOMNIA - Objective Vital Signs: Vital Signs Temperature 97.9 F 08/06/18 14:47 Pulse Rate 63 08/06/18 14:47 Respiratory Rate 18 08/06/18 14:47 Blood Pressure 117/55 L 08/06/18 14:47 O2 Sat by Pulse Oximetry (%) 96 08/06/18 09:00 Constitutional: Yes: No Distress, Calm Eyes: Yes: Conjunctiva Clear HENT: Yes: Atraumatic Cardiovascular: Yes: Regular Rate and Rhythm Respiratory: Yes: Regular, CTA Bilaterally Gastrointestinal: Yes: Normal Bowel Sounds, Soft, Distention, Tenderness (ruq), Tenderness, Epigastrium Musculoskeletal: Yes: WNL Extremities: Yes: WNL Edema: No Neurological: Yes: Alert, Oriented Psychiatric: Yes: Alert, Oriented Labs: CBC, BMP 08/06/18 08:14 08/06/18 08:14 INR, PTT INR 1.03 (0.83-1.09) 08/04/18 09:20 Microbiology 08/04/18 14:50 Urine - Urine Clean Catch Urine Culture - Final NO GROWTH OBTAINED Problem List - Problems (1) Abnormal LFTs Assessment/Plan: -GI on board -LFTs trending down -AST 117, ALT 403, Alk Phos 346 Code(s): R94.5 - ABNORMAL RESULTS OF LIVER FUNCTION STUDIES (2) Common bile duct (CBD) stricture Assessment/Plan: -GI on board -ERCP done -Actigall BID -to F/U with Dr Dylan Bird at [facility] for outpatient US Lithotripsy -IV hydration -Abdominal MRI shows numerous CBD stones/choledocolithiasis with intra and extrahepatic biliary ductal dilation with extensive periportal and brandon hepatis edema with edema and fluid extending inferiorly along 2nd portion of duodenum into the hepatorenal fossa with fullness in the pancreatic head but without pancreatic ductal dilation -surgical consult Code(s): K83.1 - OBSTRUCTION OF BILE DUCT (3) HTN (hypertension) Assessment/Plan: -Diltiazem and Losartan Code(s): I10 - ESSENTIAL (PRIMARY) HYPERTENSION (4) Right upper quadrant abdominal pain Assessment/Plan: -GI and ID on board -Zosyn -IV hydration -no leukocytosis Code(s): R10.11 - RIGHT UPPER QUADRANT PAIN (5) Acute gallstone pancreatitis Assessment/Plan: -GI on board -ERCP done -Follow up with Dr Dylan Bird at [facility] for f/u lithotripsy -Actigall -IV hydration -Abdominal MRI shows numerous CBD stones/choledocolithiasis with intra and extrahepatic biliary ductal dilation with extensive periportal and portal hepatitis edema with edema and fluid extending inferiorly along 2nd portion of duodenum into the hepatorenal fossa with fullness in the pancreatic head but without pancreatic ductal dilation -surgical consult -Zosyn Code(s): K85.10 - BILIARY ACUTE PANCREATITIS WITHOUT NECROSIS OR INFECTION
--- NOTE | 2018-08-06 16:21 | CONSULT ---
Consult Consult Specialty:: Nephrology Reason for Consultation:: low bun - History of Present Illness Chief Complaint: abdominal pain History of Present Illness: Pt is a 47 year old female with pmhx of cholecystecomy who presented with abdominal pain. She was found choledocholithiasis. She was NPO on IV fluids. I was called to evaluate her for low bun. Her BUN has been previously normal. She was started on clears today and fluids were held. She denies shortness of breath. She denies history of CKD. - History Source History Provided By: Patient - Past Medical History Cardio/Vascular: Yes: HTN Gastrointestinal: Yes: Other (s/p cholecystomy june) Hepatobiliary: Yes: Cholelithiasis ...LMP: 07/05/18 ...: No Psych: Yes: Anxiety, Depression, Panic Musculoskeletal: Yes: Chronic low back pain - Past Surgical History Past Surgical History: Yes: Cholecystectomy (june) Additional Surgical History: Lumbar spine surgery, hammer toe surgery b/l feet - Alcohol/Substance Use Hx Alcohol Use: No History of Substance Use: reports: None - Smoking History Smoking history: Current every day smoker Aproximately how many cigarettes per day: 3 - Social History Usual Living Arrangement: Other ADL: Independent Occupation: Unemployed History of Recent Travel: No Home Medications - Allergies Allergies/Adverse Reactions: Allergies Allergy/AdvReac Type Severity Reaction Status Date / Time No Known Allergies Allergy Verified 08/04/18 03:07 - Home Medications Home Medications: Ambulatory Orders Diltiazem HCl [Diltiazem 24Hr Cd] 180 mg PO DAILY 08/04/18 Ibuprofen 800 mg PO PRN PRN 08/04/18 Levomilnacipran HCl [Fetzima] 80 mg PO DAILY 08/04/18 Losartan Potassium 100 mg PO DAILY 08/04/18 Mirtazapine [Remeron -] 45 mg PO DAILY 08/04/18 Family Disease History - Family Disease History Family Disease History: Diabetes: Father (: 68: Some form of cancer (not GI) ), Heart Disease: Father, Mother (Mother: : 78: Heart Problems. H&P lists breast cancer, however she did not tell that liza me.), Other: Father, Mother, Brother (2, healthy), Sister (1, healthy), Daughter (1, healthy) Review of Systems - Review of Systems Constitutional: reports: Malaise Eyes: reports: No Symptoms HENT: reports: No Symptoms Neck: reports: No Symptoms Cardiovascular: reports: No Symptoms Respiratory: reports: No Symptoms Gastrointestinal: reports: Abdominal Pain Musculoskeletal: reports: No Symptoms Neurological: reports: No Symptoms Endocrine: reports: No Symptoms Hematology/Lymphatic: reports: No Symptoms Physical Exam Vital Signs: Vital Signs Temperature 97.9 F 08/06/18 14:47 Pulse Rate 63 08/06/18 14:47 Respiratory Rate 18 08/06/18 14:47 Blood Pressure 117/55 L 08/06/18 14:47 O2 Sat by Pulse Oximetry (%) 96 08/06/18 09:00 Constitutional: Yes: Calm Eyes: Yes: Conjunctiva Clear HENT: Yes: Atraumatic Neck: Yes: Supple Cardiovascular: Yes: S1, S2 Respiratory: Yes: CTA Bilaterally Gastrointestinal: Yes: Soft, Tenderness Renal/: Yes: WNL Musculoskeletal: Yes: WNL Edema: Yes Edema: LLE: Trace, RLE: Trace Neurological: Yes: Oriented Psychiatric: Yes: Oriented Labs: CBC, BMP 08/06/18 08:14 08/06/18 08:14 Laboratory Tests 08/03/18 08/04/18 08/05/18 22:50 09:20 07:09 WBC Hgb Sodium Chloride BUN 9.5 7.5 AST Lipase 1067 H 08/06/18 08/06/18 08:14 08:14 WBC 4.5 Hgb 10.9 Sodium 140 Chloride 103 BUN 1.5 L* AST 117 H Lipase 453 H Problem List - Problems (1) Abnormal LFTs Code(s): R94.5 - ABNORMAL RESULTS OF LIVER FUNCTION STUDIES Assessment/Plan Current Medications Generic Name Dose Route Start Last Admin Trade Name Freq PRN Reason Stop Dose Admin Diltiazem HCl 180 mg 08/04/18 10:00 08/06/18 09:28 Cardizem Cd - PO 180 mg DAILY [facility] Administration Docusate Sodium 300 mg 08/06/18 22:00 Colace - PO HS [facility] Hydromorphone HCl 2 mg 08/04/18 14:36 Dilaudid Vial - IM Q4H PRN PAIN LEVEL 4-6 Piperacillin Sod/Tazobactam 100 mls @ 200 mls/hr 08/04/18 18:00 08/06/18 09: 28 Sod 4.5 gm/ Dextrose IVPB 200 mls/hr Q8H-IV [facility] Administration Protocol Losartan Potassium 100 mg 08/04/18 10:00 08/06/18 09:28 Cozaar - PO 100 mg DAILY [facility] Administration Mirtazapine 45 mg 08/04/18 22:00 08/05/18 21:21 Remeron - PO 45 mg HS [facility] Administration Non-Formulary Medication 80 mg 08/04/18 10:00 Levomilnacipran Hcl [Fetzima] PO DAILY [facility] Ondansetron HCl 4 mg 08/04/18 07:31 08/06/18 15:29 Zofran Injection IVPUSH 4 mg Q6H-IV [facility] Administration Oxycodone HCl 10 mg 08/06/18 12:54 08/06/18 13:23 Roxicodone - PO 10 mg Q6H PRN Administration PAIN LEVEL 7-10 Ursodiol 300 mg 08/06/18 22:00 Actigal - PO BID [facility] Zolpidem Tartrate 5 mg 08/06/18 22:00 Ambien - PO HS PRN INSOMNIA Impression 1. low bun likely in part dilutional/malnutrition 2. choledocholithiasis 3. htn 4. anxiety Plan - fluids stopped - pt started on clears - repeat labs in am - pt likely to be transferred to tertiary care center - can use clinimix if she is NPO
--- NOTE | 2018-08-06 17:27 | PN.GI ---
GI Progress Note Subjective: No acute events States that she had some epigastric pain after eating today - Objective Vital Signs: Vital Signs Temperature 97.9 F 08/06/18 14:47 Pulse Rate 63 08/06/18 14:47 Respiratory Rate 18 08/06/18 14:47 Blood Pressure 117/55 L 08/06/18 14:47 O2 Sat by Pulse Oximetry (%) 96 08/06/18 09:00 Constitutional: Calm Eyes: No: Sclera Icterus Cardiovascular: Yes: Regular Rate and Rhythm Respiratory: Yes: CTA Bilaterally Gastrointestinal Inspection: No: Distention ...Auscultate: Yes: Normoactive Bowel Sounds ...Palpate: Yes: Soft, Tenderness (Mild TTP in epigastrium) ...Percussion: No: Tympanitic Edema: No (No LE edema) Neurological: Yes: Alert Labs: CBC, BMP 08/06/18 08:14 08/06/18 08:14 INR, PTT INR 1.03 (0.83-1.09) 08/04/18 09:20 Hepatic Panel Total Bilirubin 0.9 mg/dL (0.2-1) 08/06/18 08:14 Direct Bilirubin 0.7 mg/dL (0.0-0.2) H 08/06/18 08:14 AST 117 U/L (15-37) H 08/06/18 08:14 ALT 403 U/L (13-61) H 08/06/18 08:14 Alkaline Phosphatase 346 U/L (45-117) H 08/06/18 08:14 Albumin 2.9 g/dl (3.4-5.0) L 08/06/18 08:14 Problem List - Problems (1) Acute gallstone pancreatitis Assessment/Plan: Clinically impropve If continued clinical improvement and improvement in LFTs, no objection to D/C home for outpatient follow-up. I emailed Dr. Bird and His [employer] in order to arrange follow-up for repeat ERCP for stone extraction / possible lithotripsy Monitor LFTs Actigal 300mg PO BID Low fat diet Code(s): K85.10 - BILIARY ACUTE PANCREATITIS WITHOUT NECROSIS OR INFECTION
[2018-08-06] MEDS ORDERED: MIRTAZAPINE 15 MG TABLET (FP) ONE (20:17)
[2018-08-06] MEDS: DOCUSATE SODIUM 100 MG CAPSULE (FP) PO SCH (21:33)
[2018-08-06] MEDS: MIRTAZAPINE 30 MG TABLET (FP) PO SCH (21:33)
[2018-08-06] MEDS: URSODIOL 300 MG CAPSULE PO SCH (21:33)
[2018-08-06] MEDS: ZOLPIDEM TARTRATE 5 MG TABLET PO PRN (23:59)
[2018-08-07] MEDS ORDERED: PIPERACILLIN/TAZOBACTAM 4.5 GM VIAL IVPB ONE ×3 (00:31→17:07)
[2018-08-07] MEDS ORDERED: DEXTROSE 5%-WATER 100 ML IVPB ONE ×3 (00:31→17:07)
[2018-08-07] MEDS: PIPERACILLIN/TAZOB 4.5 GM 4.5 GM in DEXTROSE 5%-WATER 100 ML IVPB SCH ×3 (01:09→17:48)
[2018-08-07] MEDS: ONDANSETRON 4 MG/2 ML VIAL IVPUSH SCH ×4 (03:56→21:29)
[2018-08-07 06:51] LABS: HEMATOCRIT 35.1 % (32.4-45.2); HEMOGLOBIN 11.7 GM/dL (10.7-15.3); MCH 30.7 pg (25.7-33.7); MCHC 33.3 g/dl (32.0-36.0); MEAN CELL VOLUME 92.4 fl (80-96); MEAN PLT VOLUME 11.7 fl (7.5-11.1); PLATELET COUNT 172 K/MM3 (134-434); RBC 3.81 M/mm3 (3.60-5.2); RDW 14.4 % (11.6-15.6); WHITE BLOOD COUNT 4.9 K/mm3 (4.0-10.0)
[2018-08-07] MEDS: oxyCODONE HCL 5 MG TABLET PO PRN ×3 (07:02→20:18)
[2018-08-07 07:09] LABS: ALBUMIN 2.9 g/dl (3.4-5.0); BILIRUBIN,TOTAL 0.8 mg/dL (0.2-1); BLOOD UREA NITROGEN 3.5 mg/dL (7-18); CALCIUM 8.7 mg/dL (8.5-10.1); CREATININE 0.7 mg/dL (0.55-1.3); POTASSIUM 4.1 mmol/L (3.5-5.1); TOT PROT 5.8 g/dl (6.4-8.2)
--- NOTE | 2018-08-07 07:45 | PN ---
Progress Note, Physician Chief Complaint: Elevated LFT Acute gallbladder pancreatitis CBD stricture History of Present Illness: Previous notes and events reviewed awake and alert NAD complain of epigastric/RUQ pain after eating no reports of nausea/vomiting LFTs improving - Current Medication List Current Medications: Active Medications Diltiazem HCl (Cardizem Cd -) 180 mg PO DAILY [facility] Last Admin: 08/06/18 09:28 Dose: 180 mg Docusate Sodium (Colace -) 300 mg PO HS [facility] Last Admin: 08/06/18 21:33 Dose: 300 mg Hydromorphone HCl (Dilaudid Vial -) 2 mg IM Q4H PRN PRN Reason: PAIN LEVEL 4-6 Piperacillin Sod/Tazobactam (Sod 4.5 gm/ Dextrose) 100 mls @ 200 mls/hr IVPB Q8H-IV [facility]; Protocol Last Admin: 08/07/18 01:09 Dose: 200 mls/hr Losartan Potassium (Cozaar -) 100 mg PO DAILY [facility] Last Admin: 08/06/18 09:28 Dose: 100 mg Mirtazapine (Remeron -) 45 mg PO HS [facility] Last Admin: 08/06/18 21:33 Dose: 45 mg Non-Formulary Medication (Levomilnacipran Hcl [Fetzima]) 80 mg PO DAILY [facility] Ondansetron HCl (Zofran Injection) 4 mg IVPUSH Q6H-IV [facility] Last Admin: 08/07/18 03:56 Dose: Not Given Oxycodone HCl (Roxicodone -) 10 mg PO Q6H PRN PRN Reason: PAIN LEVEL 7-10 Last Admin: 08/07/18 07:02 Dose: 10 mg Ursodiol (Actigal -) 300 mg PO BID [facility] Last Admin: 08/06/18 21:33 Dose: 300 mg Zolpidem Tartrate (Ambien -) 5 mg PO HS PRN PRN Reason: INSOMNIA Last Admin: 08/06/18 23:59 Dose: 5 mg - Objective Vital Signs: Vital Signs Temperature 98.3 F 08/07/18 05:22 Pulse Rate 63 08/07/18 05:22 Respiratory Rate 18 08/07/18 05:22 Blood Pressure 121/77 08/07/18 05:22 O2 Sat by Pulse Oximetry (%) 96 08/06/18 21:00 Constitutional: Yes: No Distress, Calm Eyes: Yes: Conjunctiva Clear HENT: Yes: Atraumatic Cardiovascular: Yes: Regular Rate and Rhythm Respiratory: Yes: Regular, CTA Bilaterally Gastrointestinal: Yes: Normal Bowel Sounds, Soft, Distention, Tenderness (ruq), Tenderness, Epigastrium Musculoskeletal: Yes: WNL Extremities: Yes: WNL Edema: No Neurological: Yes: Alert, Oriented Psychiatric: Yes: Alert, Oriented Labs: CBC, BMP 08/07/18 06:20 INR, PTT INR 1.03 (0.83-1.09) 08/04/18 09:20 Microbiology 08/04/18 14:50 Urine - Urine Clean Catch Urine Culture - Final NO GROWTH OBTAINED Problem List - Problems (1) Abnormal LFTs Assessment/Plan: -GI on board -LFTs trending down -AST 69, ALT 306, Alk Phos 292 Code(s): R94.5 - ABNORMAL RESULTS OF LIVER FUNCTION STUDIES (2) Common bile duct (CBD) stricture Assessment/Plan: -GI on board -ERCP done -T bili 0.9 -Actigall BID -to F/U with Dr Dylan Bird at [facility] for outpatient US Lithotripsy -IV hydration -Abdominal MRI shows numerous CBD stones/choledocolithiasis with intra and extrahepatic biliary ductal dilation with extensive periportal and brandon hepatis edema with edema and fluid extending inferiorly along 2nd portion of duodenum into the hepatorenal fossa with fullness in the pancreatic head but without pancreatic ductal dilation -surgical consult Code(s): K83.1 - OBSTRUCTION OF BILE DUCT (3) HTN (hypertension) Assessment/Plan: -Diltiazem and Losartan Code(s): I10 - ESSENTIAL (PRIMARY) HYPERTENSION (4) Right upper quadrant abdominal pain Assessment/Plan: -GI and ID on board -Zosyn -IV hydration -no leukocytosis Code(s): R10.11 - RIGHT UPPER QUADRANT PAIN (5) Acute gallstone pancreatitis Assessment/Plan: -GI on board -ERCP done -Follow up with Dr Dylan Bird at [facility] for f/u lithotripsy -Actigall -IV hydration -Abdominal MRI shows numerous CBD stones/choledocolithiasis with intra and extrahepatic biliary ductal dilation with extensive periportal and portal hepatitis edema with edema and fluid extending inferiorly along 2nd portion of duodenum into the hepatorenal fossa with fullness in the pancreatic head but without pancreatic ductal dilation -surgical consult -Zosyn Code(s): K85.10 - BILIARY ACUTE PANCREATITIS WITHOUT NECROSIS OR INFECTION Assessment/Plan see problem list dvt ppx can discharge home if abdominal pain improves
[2018-08-07] MEDS ORDERED: PT OWN MED DRAWER 7, Y5N ONE ×3 (09:15→21:19)
[2018-08-07] MEDS: LOSARTAN POTASSIUM 50 MG TABLET (FP) PO SCH (09:36)
[2018-08-07] MEDS: URSODIOL 300 MG CAPSULE PO SCH ×2 (09:36→21:28)
--- NOTE | 2018-08-07 11:09 | PN.GI ---
GI Progress Note Subjective: Pt seen/examined at bedside, feels better overall, still with intermittent upper abdominal pain, denies n/v. Tolerated breakfast this am. Passing flatus, no bm yet. - Objective Vital Signs: Vital Signs Temperature 98.5 F 08/07/18 10:00 Pulse Rate 69 08/07/18 10:00 Respiratory Rate 18 08/07/18 10:00 Blood Pressure 111/74 08/07/18 10:00 O2 Sat by Pulse Oximetry (%) 94 L 08/07/18 09:00 Constitutional: Well Nourished, No Distress, Calm Cardiovascular: Yes: WNL, Regular Rate and Rhythm Respiratory: Yes: WNL, Regular, CTA Bilaterally ...Palpate: Yes: Other (Abd soft, mildly tender in epigastrium and periumbilical region on palpation, non distended, no rebound, guarding or rigidity) Labs: CBC, BMP 08/07/18 06:20 08/07/18 06:20 INR, PTT INR 1.03 (0.83-1.09) 08/04/18 09:20 Problem List - Problems (1) Acute gallstone pancreatitis Assessment/Plan: 47yo female h/o lap cholecystectomy with pancreatitis s/p ERCP on 08/05 revealing multiple stones (larger ones not able to be removed) s/p stent. Still with some upper abdominal pain though has improved. LFTs continue to improve, T bili normalized. -Continue diet as tolerated (low fat) -Continue antibiotics -Monitor LFT trend to ensure continued improvement -Outpt follow up appt has been scheduled with Dr. Bird on 08/29/18 Code(s): K85.10 - BILIARY ACUTE PANCREATITIS WITHOUT NECROSIS OR INFECTION
--- NOTE | 2018-08-07 12:51 | PN ---
Progress Note, Physician History of Present Illness: Pt seen and examined at bedside. She is awake and alert. She is tolerating diet. - Current Medication List Current Medications: Active Medications Diltiazem HCl (Cardizem Cd -) 180 mg PO DAILY [facility] Last Admin: 08/07/18 09:36 Dose: 180 mg Docusate Sodium (Colace -) 300 mg PO HS [facility] Last Admin: 08/06/18 21:33 Dose: 300 mg Hydromorphone HCl (Dilaudid Vial -) 2 mg IM Q4H PRN PRN Reason: PAIN LEVEL 4-6 Piperacillin Sod/Tazobactam (Sod 4.5 gm/ Dextrose) 100 mls @ 200 mls/hr IVPB Q8H-IV [facility]; Protocol Last Admin: 08/07/18 09:37 Dose: 200 mls/hr Losartan Potassium (Cozaar -) 100 mg PO DAILY [facility] Last Admin: 08/07/18 09:36 Dose: 100 mg Mirtazapine (Remeron -) 45 mg PO HS [facility] Last Admin: 08/06/18 21:33 Dose: 45 mg Non-Formulary Medication (Levomilnacipran Hcl [Fetzima]) 80 mg PO DAILY [facility] Ondansetron HCl (Zofran Injection) 4 mg IVPUSH Q6H-IV [facility] Last Admin: 08/07/18 09:37 Dose: Not Given Oxycodone HCl (Roxicodone -) 10 mg PO Q6H PRN PRN Reason: PAIN LEVEL 7-10 Last Admin: 08/07/18 07:02 Dose: 10 mg Ursodiol (Actigal -) 300 mg PO BID [facility] Last Admin: 08/07/18 09:36 Dose: 300 mg Zolpidem Tartrate (Ambien -) 5 mg PO HS PRN PRN Reason: INSOMNIA Last Admin: 08/06/18 23:59 Dose: 5 mg - Objective Vital Signs: Vital Signs Temperature 98.5 F 08/07/18 10:00 Pulse Rate 69 08/07/18 10:00 Respiratory Rate 18 08/07/18 10:00 Blood Pressure 111/74 08/07/18 10:00 O2 Sat by Pulse Oximetry (%) 94 L 08/07/18 09:00 Constitutional: Yes: Calm Eyes: Yes: Conjunctiva Clear HENT: Yes: Atraumatic Neck: Yes: Supple Cardiovascular: Yes: S1, S2 Respiratory: Yes: CTA Bilaterally Gastrointestinal: Yes: Soft Genitourinary: Yes: WNL Musculoskeletal: Yes: WNL Edema: No Integumentary: Yes: Tattoos Neurological: Yes: Oriented Labs: CBC, BMP 08/07/18 06:20 08/07/18 06:20 INR, PTT INR 1.03 (0.83-1.09) 08/04/18 09:20 Problem List - Problems (1) Abnormal LFTs Code(s): R94.5 - ABNORMAL RESULTS OF LIVER FUNCTION STUDIES Assessment/Plan Current Medications Generic Name Dose Route Start Last Admin Trade Name Freq PRN Reason Stop Dose Admin Diltiazem HCl 180 mg 08/04/18 10:00 08/07/18 09:36 Cardizem Cd - PO 180 mg DAILY [facility] Administration Docusate Sodium 300 mg 08/06/18 22:00 08/06/18 21:33 Colace - PO 300 mg HS [facility] Administration Hydromorphone HCl 2 mg 08/04/18 14:36 Dilaudid Vial - IM Q4H PRN PAIN LEVEL 4-6 Piperacillin Sod/Tazobactam 100 mls @ 200 mls/hr 08/04/18 18:00 08/07/18 09: 37 Sod 4.5 gm/ Dextrose IVPB 200 mls/hr Q8H-IV [facility] Administration Protocol Losartan Potassium 100 mg 08/04/18 10:00 08/07/18 09:36 Cozaar - PO 100 mg DAILY [facility] Administration Mirtazapine 45 mg 08/04/18 22:00 08/06/18 21:33 Remeron - PO 45 mg HS [facility] Administration Non-Formulary Medication 80 mg 08/04/18 10:00 Levomilnacipran Hcl [Fetzima] PO DAILY [facility] Ondansetron HCl 4 mg 08/04/18 07:31 08/07/18 09:37 Zofran Injection IVPUSH Not Given Q6H-IV [facility] Oxycodone HCl 10 mg 08/06/18 12:54 08/07/18 07:02 Roxicodone - PO 10 mg Q6H PRN Administration PAIN LEVEL 7-10 Ursodiol 300 mg 08/06/18 22:00 08/07/18 09:36 Actigal - PO 300 mg BID [facility] Administration Zolpidem Tartrate 5 mg 08/06/18 22:00 08/06/18 23:59 Ambien - PO 5 mg HS PRN Administration INSOMNIA Laboratory Tests 08/06/18 08/07/18 08:14 06:20 BUN 1.5 L* 3.5 L Impression 1. low bun likely in part dilutional/malnutrition 2. choledocholithiasis 3. htn 4. anxiety Plan - bun improving - pt tolerating diet - encourage po intake as tolerated - stable off of fluids - monitor bun
[2018-08-07] MEDS ORDERED: MIRTAZAPINE 15 MG TABLET (FP) ONE (21:18)
[2018-08-07] MEDS: DOCUSATE SODIUM 100 MG CAPSULE (FP) PO SCH (21:29)
[2018-08-07] MEDS: MIRTAZAPINE 30 MG TABLET (FP) PO SCH (21:29)
[2018-08-07] MEDS: ZOLPIDEM TARTRATE 5 MG TABLET PO PRN (22:59)
[2018-08-08] MEDS ORDERED: PIPERACILLIN/TAZOBACTAM 4.5 GM VIAL IVPB ONE ×3 (02:00→17:04)
[2018-08-08] MEDS ORDERED: DEXTROSE 5%-WATER 100 ML IVPB ONE ×3 (02:00→17:04)
[2018-08-08] MEDS: PIPERACILLIN/TAZOB 4.5 GM 4.5 GM in DEXTROSE 5%-WATER 100 ML IVPB SCH ×3 (02:09→18:35)
[2018-08-08] MEDS: ONDANSETRON 4 MG/2 ML VIAL IVPUSH SCH ×4 (02:15→21:42)
[2018-08-08 07:23] LABS: HEMATOCRIT 36.8 % (32.4-45.2); HEMOGLOBIN 12.3 GM/dL (10.7-15.3); MCH 30.9 pg (25.7-33.7); MCHC 33.3 g/dl (32.0-36.0); MEAN CELL VOLUME 92.9 fl (80-96); MEAN PLT VOLUME 11.6 fl (7.5-11.1); RBC 3.96 M/mm3 (3.60-5.2); RDW 14.5 % (11.6-15.6); WHITE BLOOD COUNT 4.2 K/mm3 (4.0-10.0)
[2018-08-08 07:43] LABS: BILIRUBIN,TOTAL 0.6 mg/dL (0.2-1); BLOOD UREA NITROGEN 4.7 mg/dL (7-18); CALCIUM 9.2 mg/dL (8.5-10.1); CREATININE 0.7 mg/dL (0.55-1.3); POTASSIUM 4.4 mmol/L (3.5-5.1); TOT PROT 5.9 g/dl (6.4-8.2)
[2018-08-08 08:14] LABS: PLATELET COUNT 179 K/MM3 (134-434)
[2018-08-08] MEDS ORDERED: PT OWN MED DRAWER 7, Y5N ONE ×2 (09:12→20:15)
[2018-08-08] MEDS: LOSARTAN POTASSIUM 50 MG TABLET (FP) PO SCH (09:18)
[2018-08-08] MEDS: URSODIOL 300 MG CAPSULE PO SCH ×2 (09:18→21:38)
[2018-08-08] MEDS: oxyCODONE HCL 5 MG TABLET PO PRN ×2 (09:19→16:32)
--- NOTE | 2018-08-08 10:11 | PN ---
Progress Note, Physician History of Present Illness: Pt seen and examined at bedside. She is tolerating diet. - Current Medication List Current Medications: Active Medications Diltiazem HCl (Cardizem Cd -) 180 mg PO DAILY [facility] Last Admin: 08/08/18 09:18 Dose: 180 mg Docusate Sodium (Colace -) 300 mg PO HS [facility] Last Admin: 08/07/18 21:29 Dose: 300 mg Hydromorphone HCl (Dilaudid Vial -) 2 mg IM Q4H PRN PRN Reason: PAIN LEVEL 4-6 Piperacillin Sod/Tazobactam (Sod 4.5 gm/ Dextrose) 100 mls @ 200 mls/hr IVPB Q8H-IV [facility]; Protocol Last Admin: 08/08/18 09:19 Dose: 200 mls/hr Losartan Potassium (Cozaar -) 100 mg PO DAILY [facility] Last Admin: 08/08/18 09:18 Dose: 100 mg Mirtazapine (Remeron -) 45 mg PO HS [facility] Last Admin: 08/07/18 21:29 Dose: 45 mg Ondansetron HCl (Zofran Injection) 4 mg IVPUSH Q6H-IV [facility] Last Admin: 08/08/18 09:17 Dose: 4 mg Oxycodone HCl (Roxicodone -) 10 mg PO Q6H PRN PRN Reason: PAIN LEVEL 7-10 Last Admin: 08/08/18 09:19 Dose: 10 mg Ursodiol (Actigal -) 300 mg PO BID [facility] Last Admin: 08/08/18 09:18 Dose: 300 mg Zolpidem Tartrate (Ambien -) 5 mg PO HS PRN PRN Reason: INSOMNIA Last Admin: 08/07/18 22:59 Dose: 5 mg - Objective Vital Signs: Vital Signs Temperature 98.3 F 08/08/18 05:40 Pulse Rate 62 08/08/18 05:40 Respiratory Rate 20 08/08/18 05:40 Blood Pressure 118/78 08/08/18 05:40 O2 Sat by Pulse Oximetry (%) 94 L 08/07/18 21:00 Constitutional: Yes: Calm Eyes: Yes: Conjunctiva Clear HENT: Yes: Atraumatic Neck: Yes: Supple Cardiovascular: Yes: S1, S2 Respiratory: Yes: CTA Bilaterally Gastrointestinal: Yes: Soft Genitourinary: Yes: WNL Musculoskeletal: Yes: WNL Edema: No Neurological: Yes: Oriented Psychiatric: Yes: Oriented Labs: CBC, BMP 08/08/18 06:36 08/08/18 06:36 INR, PTT INR 1.03 (0.83-1.09) 08/04/18 09:20 Problem List - Problems (1) Abnormal LFTs Code(s): R94.5 - ABNORMAL RESULTS OF LIVER FUNCTION STUDIES Assessment/Plan Current Medications Generic Name Dose Route Start Last Admin Trade Name Freq PRN Reason Stop Dose Admin Diltiazem HCl 180 mg 08/04/18 10:00 08/08/18 09:18 Cardizem Cd - PO 180 mg DAILY [facility] Administration Docusate Sodium 300 mg 08/06/18 22:00 08/07/18 21:29 Colace - PO 300 mg HS [facility] Administration Hydromorphone HCl 2 mg 08/04/18 14:36 Dilaudid Vial - IM Q4H PRN PAIN LEVEL 4-6 Piperacillin Sod/Tazobactam 100 mls @ 200 mls/hr 08/04/18 18:00 08/08/18 09: 19 Sod 4.5 gm/ Dextrose IVPB 200 mls/hr Q8H-IV [facility] Administration Protocol Losartan Potassium 100 mg 08/04/18 10:00 08/08/18 09:18 Cozaar - PO 100 mg DAILY [facility] Administration Mirtazapine 45 mg 08/04/18 22:00 08/07/18 21:29 Remeron - PO 45 mg HS [facility] Administration Ondansetron HCl 4 mg 08/04/18 07:31 08/08/18 09:17 Zofran Injection IVPUSH 4 mg Q6H-IV [facility] Administration Oxycodone HCl 10 mg 08/06/18 12:54 08/08/18 09:19 Roxicodone - PO 10 mg Q6H PRN Administration PAIN LEVEL 7-10 Ursodiol 300 mg 08/06/18 22:00 08/08/18 09:18 Actigal - PO 300 mg BID [facility] Administration Zolpidem Tartrate 5 mg 08/06/18 22:00 08/07/18 22:59 Ambien - PO 5 mg HS PRN Administration INSOMNIA Impression 1. low bun likely in part dilutional/malnutrition 2. choledocholithiasis 3. htn 4. anxiety Plan - bun improved, was low likely due to dilution and malnutrition - encourage po intake - will follow PRN
--- NOTE | 2018-08-08 15:35 | PN ---
Progress Note, Physician Chief Complaint: Elevated LFT Acute gallbladder pancreatitis CBD stricture History of Present Illness: NAD tolerating PO intake - Current Medication List Current Medications: Active Medications Diltiazem HCl (Cardizem Cd -) 180 mg PO DAILY [facility] Last Admin: 08/08/18 09:18 Dose: 180 mg Docusate Sodium (Colace -) 300 mg PO HS [facility] Last Admin: 08/07/18 21:29 Dose: 300 mg Hydromorphone HCl (Dilaudid Vial -) 2 mg IM Q4H PRN PRN Reason: PAIN LEVEL 4-6 Piperacillin Sod/Tazobactam (Sod 4.5 gm/ Dextrose) 100 mls @ 200 mls/hr IVPB Q8H-IV [facility]; Protocol Last Admin: 08/08/18 09:19 Dose: 200 mls/hr Losartan Potassium (Cozaar -) 100 mg PO DAILY [facility] Last Admin: 08/08/18 09:18 Dose: 100 mg Mirtazapine (Remeron -) 45 mg PO HS [facility] Last Admin: 08/07/18 21:29 Dose: 45 mg Ondansetron HCl (Zofran Injection) 4 mg IVPUSH Q6H-IV [facility] Last Admin: 08/08/18 09:17 Dose: 4 mg Oxycodone HCl (Roxicodone -) 10 mg PO Q6H PRN PRN Reason: PAIN LEVEL 7-10 Last Admin: 08/08/18 09:19 Dose: 10 mg Ursodiol (Actigal -) 300 mg PO BID [facility] Last Admin: 08/08/18 09:18 Dose: 300 mg Zolpidem Tartrate (Ambien -) 5 mg PO HS PRN PRN Reason: INSOMNIA Last Admin: 08/07/18 22:59 Dose: 5 mg - Objective Vital Signs: Vital Signs Temperature 98.7 F 08/08/18 15:09 Pulse Rate 58 L 08/08/18 15:09 Respiratory Rate 20 08/08/18 15:09 Blood Pressure 115/66 08/08/18 15:09 O2 Sat by Pulse Oximetry (%) 96 08/08/18 09:00 Constitutional: Yes: Well Nourished, No Distress, Calm Cardiovascular: Yes: Regular Rate and Rhythm Respiratory: Yes: Regular Gastrointestinal: Yes: Normal Bowel Sounds, Soft, Distention (mild) Musculoskeletal: Yes: WNL Extremities: Yes: WNL Edema: No Peripheral Pulses WNL: Yes Neurological: Yes: Alert, Oriented Psychiatric: Yes: Alert, Oriented Labs: CBC, BMP 08/08/18 06:36 08/08/18 06:36 INR, PTT INR 1.03 (0.83-1.09) 08/04/18 09:20 Problem List - Problems (1) Abdominal pain Assessment/Plan: +flatus, + belching -Last BM 08/01 -Mylanta 30 ml once+ miralax once Code(s): R10.9 - UNSPECIFIED ABDOMINAL PAIN Assessment/Plan (1) Abnormal LFTs Assessment/Plan: -GI on board -LFTs trending down Code(s): R94.5 - ABNORMAL RESULTS OF LIVER FUNCTION STUDIES (2) Common bile duct (CBD) stricture Assessment/Plan: -GI on board -ERCP done, unable to remove large stones, stenting done. -T bili normalized -Actigall BID -to F/U with Dr Dylan Bird at [facility] for outpatient US Lithotripsy -Abdominal MRI shows numerous CBD stones/choledocolithiasis with intra and extrahepatic biliary ductal dilation with extensive periportal and brandon hepatis edema with edema and fluid extending inferiorly along 2nd portion of duodenum into the hepatorenal fossa with fullness in the pancreatic head but without pancreatic ductal dilation -surgical consult Code(s): K83.1 - OBSTRUCTION OF BILE DUCT (3) HTN (hypertension) Assessment/Plan: -Diltiazem and Losartan Code(s): I10 - ESSENTIAL (PRIMARY) HYPERTENSION (4) Right upper quadrant abdominal pain Assessment/Plan: -GI and ID on board -Zosyn -no leukocytosis Code(s): R10.11 - RIGHT UPPER QUADRANT PAIN (5) Acute gallstone pancreatitis Assessment/Plan: -GI on board -ERCP done -Follow up with Dr Dylan Bird at [facility] for f/u lithotripsy -Actigall -ERCP done, unable to remove large stones, stenting done. -Abdominal MRI shows numerous CBD stones/choledocolithiasis with intra and extrahepatic biliary ductal dilation with extensive periportal and portal hepatitis edema with edema and fluid extending inferiorly along 2nd portion of duodenum into the hepatorenal fossa with fullness in the pancreatic head but without pancreatic ductal dilation -surgical consult -Zosyn Code(s): K85.10 - BILIARY ACUTE PANCREATITIS WITHOUT NECROSIS OR INFECTION
[2018-08-08] MEDS ORDERED: MAG HYDROX/AL HYDROX/SIMETH 30 ML UNIT-DOSE CUP PO ONE (15:54)
[2018-08-08] MEDS: POLYETHYLENE GLYCOL 3350 119 GM BTL PO SCH (16:55)
[2018-08-08] MEDS ORDERED: MIRTAZAPINE 15 MG TABLET (FP) ONE (20:14)
[2018-08-08] MEDS: DOCUSATE SODIUM 100 MG CAPSULE (FP) PO SCH (21:39)
[2018-08-08] MEDS: MIRTAZAPINE 30 MG TABLET (FP) PO SCH (21:39)
[2018-08-08] MEDS: ZOLPIDEM TARTRATE 5 MG TABLET PO PRN (22:59)
[2018-08-09] MEDS ORDERED: PIPERACILLIN/TAZOBACTAM 4.5 GM VIAL IVPB ONE ×3 (02:36→17:14)
[2018-08-09] MEDS ORDERED: DEXTROSE 5%-WATER 100 ML IVPB ONE ×3 (02:36→17:15)
[2018-08-09] MEDS: PIPERACILLIN/TAZOB 4.5 GM 4.5 GM in DEXTROSE 5%-WATER 100 ML IVPB SCH ×3 (02:40→17:28)
[2018-08-09] MEDS: ONDANSETRON 4 MG/2 ML VIAL IVPUSH SCH ×4 (03:27→21:40)
[2018-08-09] MEDS ORDERED: PT OWN MED DRAWER 7, Y5N ONE (09:23)
[2018-08-09] MEDS: LOSARTAN POTASSIUM 50 MG TABLET (FP) PO SCH (09:38)
[2018-08-09] MEDS: URSODIOL 300 MG CAPSULE PO SCH ×2 (09:39→21:41)
[2018-08-09] MEDS: POLYETHYLENE GLYCOL 3350 119 GM BTL PO SCH (09:39)
[2018-08-09] MEDS: oxyCODONE HCL 5 MG TABLET PO PRN ×3 (09:43→23:34)
--- NOTE | 2018-08-09 11:54 | PN.GI ---
GI Progress Note Subjective: Still with epigastric pain No acute events - Objective Vital Signs: Vital Signs Temperature 98.2 F 08/09/18 06:00 Pulse Rate 64 08/09/18 06:00 Respiratory Rate 18 08/09/18 06:00 Blood Pressure 140/58 L 08/09/18 06:00 O2 Sat by Pulse Oximetry (%) 96 08/08/18 21:00 Constitutional: Calm Eyes: No: Sclera Icterus Cardiovascular: Yes: Regular Rate and Rhythm Respiratory: Yes: CTA Bilaterally Gastrointestinal Inspection: Yes: Scars. No: Distention ...Auscultate: Yes: Normoactive Bowel Sounds ...Palpate: Yes: Soft, Tenderness (Marked TTP in epigastrium) ...Percussion: No: Tympanitic Edema: No (No LE edema) Neurological: Yes: Alert Labs: CBC, BMP 08/08/18 06:36 08/08/18 06:36 INR, PTT INR 1.03 (0.83-1.09) 08/04/18 09:20 Problem List - Problems (1) Acute gallstone pancreatitis Assessment/Plan: PAtient has appointment set up later this month with Dr. Dylan Bird at [facility] Persistent epigastric pain. LFTs ordered for today and repeat CT scan with contrast ordered to eval for sequela of gallstone pancreatitis that may be contributing to her epigastric pain Code(s): K85.10 - BILIARY ACUTE PANCREATITIS WITHOUT NECROSIS OR INFECTION
--- NOTE | 2018-08-09 13:23 | PN ---
Progress Note, Physician Chief Complaint: Elevated LFT Acute gallbladder pancreatitis CBD stricture History of Present Illness: NAD tolerating PO intake c/o diffuse abd pain Has not had any BM since 08/01/18 - Current Medication List Current Medications: Active Medications Diltiazem HCl (Cardizem Cd -) 180 mg PO DAILY [facility] Last Admin: 08/09/18 09:38 Dose: 180 mg Docusate Sodium (Colace -) 300 mg PO HS [facility] Last Admin: 08/08/18 21:39 Dose: 300 mg Hydromorphone HCl (Dilaudid Vial -) 2 mg IM Q4H PRN PRN Reason: PAIN LEVEL 4-6 Piperacillin Sod/Tazobactam (Sod 4.5 gm/ Dextrose) 100 mls @ 200 mls/hr IVPB Q8H-IV [facility]; Protocol Last Admin: 08/09/18 09:37 Dose: 200 mls/hr Losartan Potassium (Cozaar -) 100 mg PO DAILY [facility] Last Admin: 08/09/18 09:38 Dose: 100 mg Mirtazapine (Remeron -) 45 mg PO HS [facility] Last Admin: 08/08/18 21:39 Dose: 45 mg Ondansetron HCl (Zofran Injection) 4 mg IVPUSH Q6H-IV [facility] Last Admin: 08/09/18 09:35 Dose: Not Given Oxycodone HCl (Roxicodone -) 10 mg PO Q6H PRN PRN Reason: PAIN LEVEL 7-10 Last Admin: 08/09/18 09:43 Dose: 10 mg Polyethylene Glycol (Miralax (For Daily Use) -) 17 gm PO DAILY [facility] Last Admin: 08/09/18 09:39 Dose: 17 grams Ursodiol (Actigal -) 300 mg PO BID [facility] Last Admin: 08/09/18 09:39 Dose: 300 mg Zolpidem Tartrate (Ambien -) 5 mg PO HS PRN PRN Reason: INSOMNIA Last Admin: 08/08/18 22:59 Dose: 5 mg - Objective Vital Signs: Vital Signs Temperature 98.2 F 08/09/18 10:00 Pulse Rate 68 08/09/18 10:00 Respiratory Rate 18 08/09/18 10:00 Blood Pressure 136/77 08/09/18 10:00 O2 Sat by Pulse Oximetry (%) 96 08/09/18 09:00 Constitutional: Yes: Well Nourished, No Distress, Calm Cardiovascular: Yes: Regular Rate and Rhythm Respiratory: Yes: Regular Gastrointestinal: Yes: Soft, Distention, Hypoactive Bowel Sounds, Tenderness ( diffuse) Genitourinary: Yes: WNL Musculoskeletal: Yes: WNL Extremities: Yes: WNL Edema: No Peripheral Pulses WNL: Yes Neurological: Yes: Alert, Oriented Psychiatric: Yes: Alert, Oriented Labs: CBC, BMP 08/08/18 06:36 08/08/18 06:36 INR, PTT INR 1.03 (0.83-1.09) 08/04/18 09:20 Problem List - Problems (1) Abdominal pain Assessment/Plan: +flatus, + belching -Last BM 08/01 -miralax daily -Relistor -CT abd -Seen by GI Code(s): R10.9 - UNSPECIFIED ABDOMINAL PAIN Assessment/Plan (1) Abnormal LFTs Assessment/Plan: -GI on board -LFTs trending down, repeat pending Code(s): R94.5 - ABNORMAL RESULTS OF LIVER FUNCTION STUDIES (2) Common bile duct (CBD) stricture Assessment/Plan: -GI on board -ERCP done, unable to remove large stones, stenting done. -T bili normalized -Actigall BID -to F/U with Dr Dylan Bird at [facility] for outpatient US Lithotripsy -Abdominal MRI shows numerous CBD stones/choledocolithiasis with intra and extrahepatic biliary ductal dilation with extensive periportal and brandon hepatis edema with edema and fluid extending inferiorly along 2nd portion of duodenum into the hepatorenal fossa with fullness in the pancreatic head but without pancreatic ductal dilation -surgical consult Code(s): K83.1 - OBSTRUCTION OF BILE DUCT (3) HTN (hypertension) Assessment/Plan: -Diltiazem and Losartan Code(s): I10 - ESSENTIAL (PRIMARY) HYPERTENSION (4) Right upper quadrant abdominal pain Assessment/Plan: -GI and ID on board -Zosyn -no leukocytosis Code(s): R10.11 - RIGHT UPPER QUADRANT PAIN (5) Acute gallstone pancreatitis Assessment/Plan: -GI on board -ERCP done -Follow up with Dr Dylan Bird at [facility] for f/u lithotripsy -Actigall -ERCP done, unable to remove large stones, stenting done. -Abdominal MRI shows numerous CBD stones/choledocolithiasis with intra and extrahepatic biliary ductal dilation with extensive periportal and portal hepatitis edema with edema and fluid extending inferiorly along 2nd portion of duodenum into the hepatorenal fossa with fullness in the pancreatic head but without pancreatic ductal dilation -surgical consult -Zosyn Code(s): K85.10 - BILIARY ACUTE PANCREATITIS WITHOUT NECROSIS OR INFECTION
[2018-08-09] MEDS ORDERED: Methylnaltrexone Bromide 12 MG/0.6 ML KIT SQ SCH (13:30)
[2018-08-09 13:51] LABS: ALBUMIN 3.2 g/dl (3.4-5.0); BILIRUBIN,DIRECT 0.5 mg/dL (0.0-0.2); BILIRUBIN,TOTAL 0.6 mg/dL (0.2-1); TOT PROT 6.5 g/dl (6.4-8.2)
[2018-08-09] MEDS ORDERED: MIRTAZAPINE 15 MG TABLET (FP) ONE (21:30)
[2018-08-09] MEDS: MIRTAZAPINE 30 MG TABLET (FP) PO SCH (21:40)
[2018-08-09] MEDS: DOCUSATE SODIUM 100 MG CAPSULE (FP) PO SCH (21:41)
[2018-08-09] MEDS: ZOLPIDEM TARTRATE 5 MG TABLET PO PRN (23:34)
[2018-08-10] MEDS ORDERED: DEXTROSE 5%-WATER 100 ML IVPB ONE ×2 (01:24→09:43)
[2018-08-10] MEDS ORDERED: PIPERACILLIN/TAZOBACTAM 4.5 GM VIAL IVPB ONE ×2 (01:24→09:43)
[2018-08-10] MEDS: PIPERACILLIN/TAZOB 4.5 GM 4.5 GM in DEXTROSE 5%-WATER 100 ML IVPB SCH ×2 (01:52→10:25)
[2018-08-10] MEDS: ONDANSETRON 4 MG/2 ML VIAL IVPUSH SCH ×4 (02:17→21:18)
[2018-08-10] MEDS: oxyCODONE HCL 5 MG TABLET PO PRN ×2 (06:20→22:41)
[2018-08-10] MEDS: Methylnaltrexone Bromide 12 MG/0.6 ML KIT SQ SCH (10:25)
[2018-08-10] MEDS: LOSARTAN POTASSIUM 50 MG TABLET (FP) PO SCH (10:25)
[2018-08-10] MEDS: URSODIOL 300 MG CAPSULE PO SCH ×2 (10:26→21:19)
[2018-08-10] MEDS: POLYETHYLENE GLYCOL 3350 119 GM BTL PO SCH (10:26)
--- NOTE | 2018-08-10 11:08 | PN ---
Progress Note, Physician Chief Complaint: Elevated LFT Acute gallbladder pancreatitis CBD stricture History of Present Illness: NAD tolerating PO intake c/o diffuse abd pain Has not had any BM since 08/01/18 CT abd demonstrates portal vein thrombosis - Current Medication List Current Medications: Active Medications Diltiazem HCl (Cardizem Cd -) 180 mg PO DAILY [facility] Last Admin: 08/10/18 10:26 Dose: 180 mg Docusate Sodium (Colace -) 300 mg PO HS [facility] Last Admin: 08/09/18 21:41 Dose: 300 mg Hydromorphone HCl (Dilaudid Vial -) 2 mg IM Q4H PRN PRN Reason: PAIN LEVEL 4-6 Piperacillin Sod/Tazobactam (Sod 4.5 gm/ Dextrose) 100 mls @ 200 mls/hr IVPB Q8H-IV [facility]; Protocol Last Admin: 08/10/18 10:25 Dose: 200 mls/hr Losartan Potassium (Cozaar -) 100 mg PO DAILY [facility] Last Admin: 08/10/18 10:25 Dose: 100 mg Methylnaltrexone [place] (Relistor -) 12 mg SQ DAILY [facility] Last Admin: 08/10/18 10:25 Dose: 12 mg Mirtazapine (Remeron -) 45 mg PO HS [facility] Last Admin: 08/09/18 21:40 Dose: 45 mg Ondansetron HCl (Zofran Injection) 4 mg IVPUSH Q6H-IV [facility] Last Admin: 08/10/18 10:22 Dose: Not Given Oxycodone HCl (Roxicodone -) 10 mg PO Q6H PRN PRN Reason: PAIN LEVEL 7-10 Last Admin: 08/10/18 06:20 Dose: 10 mg Polyethylene Glycol (Miralax (For Daily Use) -) 17 gm PO DAILY [facility] Last Admin: 08/10/18 10:26 Dose: 17 grams Ursodiol (Actigal -) 300 mg PO BID [facility] Last Admin: 08/10/18 10:26 Dose: 300 mg Zolpidem Tartrate (Ambien -) 5 mg PO HS PRN PRN Reason: INSOMNIA Last Admin: 08/09/18 23:34 Dose: 5 mg - Objective Vital Signs: Vital Signs Temperature 98.5 F 08/09/18 22:00 Pulse Rate 66 08/09/18 22:00 Respiratory Rate 18 08/09/18 22:00 Blood Pressure 120/77 08/09/18 22:00 O2 Sat by Pulse Oximetry (%) 96 08/09/18 21:00 Constitutional: Yes: Well Nourished, No Distress, Calm Cardiovascular: Yes: Regular Rate and Rhythm Respiratory: Yes: Regular Gastrointestinal: Yes: Normal Bowel Sounds, Soft, Distention, Tenderness ( diffuse) Genitourinary: Yes: WNL Musculoskeletal: Yes: WNL Extremities: Yes: WNL Edema: No Peripheral Pulses WNL: Yes Neurological: Yes: Alert, Oriented Psychiatric: Yes: Alert, Oriented Labs: CBC, BMP 08/08/18 06:36 08/08/18 06:36 INR, PTT INR 1.03 (0.83-1.09) 08/04/18 09:20 Problem List - Problems (1) Abdominal pain Assessment/Plan: +flatus, + belching -Last BM 08/01 -miralax daily -Relistor -CT abd -Seen by GI Code(s): R10.9 - UNSPECIFIED ABDOMINAL PAIN (2) Portal vein thrombosis Assessment/Plan: -Hematology consult -Start eliquis 10 mg po BID x 7 days, then convert to 5 mg po BID -GI on board Code(s): I81 - PORTAL VEIN THROMBOSIS Assessment/Plan (1) Abnormal LFTs Assessment/Plan: -GI on board -LFTs trending down Code(s): R94.5 - ABNORMAL RESULTS OF LIVER FUNCTION STUDIES (2) Common bile duct (CBD) stricture Assessment/Plan: -GI on board -ERCP done, unable to remove large stones, stenting done. -T bili normalized -Actigall BID -to F/U with Dr Dylan Bird at [facility] for outpatient US Lithotripsy -Abdominal MRI shows numerous CBD stones/choledocolithiasis with intra and extrahepatic biliary ductal dilation with extensive periportal and brandon hepatis edema with edema and fluid extending inferiorly along 2nd portion of duodenum into the hepatorenal fossa with fullness in the pancreatic head but without pancreatic ductal dilation -surgical consult Code(s): K83.1 - OBSTRUCTION OF BILE DUCT (3) HTN (hypertension) Assessment/Plan: -Diltiazem and Losartan Code(s): I10 - ESSENTIAL (PRIMARY) HYPERTENSION (4) Right upper quadrant abdominal pain Assessment/Plan: -GI and ID on board -D/C zosyn, switch to oral abx cefuroxime 500 mg po bid x 5 days -no leukocytosis Code(s): R10.11 - RIGHT UPPER QUADRANT PAIN (5) Acute gallstone pancreatitis Assessment/Plan: -GI on board -ERCP done -Follow up with Dr Dylan Bird at [facility] for f/u lithotripsy -Actigall -ERCP done, unable to remove large stones, stenting done. -Abdominal MRI shows numerous CBD stones/choledocolithiasis with intra and extrahepatic biliary ductal dilation with extensive periportal and portal hepatitis edema with edema and fluid extending inferiorly along 2nd portion of duodenum into the hepatorenal fossa with fullness in the pancreatic head but without pancreatic ductal dilation -surgical consult -d/c Zosyn Code(s): K85.10 - BILIARY ACUTE PANCREATITIS WITHOUT NECROSIS OR INFECTION
[2018-08-10 13:28] LABS: BASO % 0.6 % (0-2.0); HEMATOCRIT 40.2 % (32.4-45.2); HEMOGLOBIN 13.1 GM/dL (10.7-15.3); LYMPH % 32.8 % (8-40); MCH 30.3 pg (25.7-33.7); MCHC 32.6 g/dl (32.0-36.0); MEAN PLT VOLUME 11.4 fl (7.5-11.1); MONO % 10.9 % (3.8-10.2); NEUT % 52.7 % (42.8-82.8); RBC 4.32 M/mm3 (3.60-5.2); RDW 14.7 % (11.6-15.6); WHITE BLOOD COUNT 8.5 K/mm3 (4.0-10.0)
[2018-08-10 13:38] LABS: PROTHROMBIN TIME (PATIENT) 11.8 SEC (9.7-13.0)
[2018-08-10 13:40] LABS: ACTIVATED PTT 36.3 SECONDS (25.2-36.5)
[2018-08-10 13:50] LABS: ALBUMIN 3.5 g/dl (3.4-5.0); BILIRUBIN,TOTAL 0.5 mg/dL (0.2-1); BLOOD UREA NITROGEN 7.8 mg/dL (7-18); CALCIUM 9.3 mg/dL (8.5-10.1); CREATININE 0.7 mg/dL (0.55-1.3); POTASSIUM 4.7 mmol/L (3.5-5.1); TOT PROT 6.8 g/dl (6.4-8.2)
[2018-08-10 13:56] LABS: PLATELET COUNT 251 K/MM3 (134-434)
[2018-08-10] MEDS: APIXABAN 5 MG TABLET PO SCH ×2 (14:33→21:21)
[2018-08-10] MEDS ORDERED: MIRTAZAPINE 15 MG TABLET (FP) ONE (20:53)
[2018-08-10] MEDS: CEFUROXIME AXETIL 500 MG TABLET PO SCH (21:20)
[2018-08-10] MEDS: DOCUSATE SODIUM 100 MG CAPSULE (FP) PO SCH (21:21)
[2018-08-10] MEDS: MIRTAZAPINE 30 MG TABLET (FP) PO SCH (21:22)
--- NOTE | 2018-08-10 22:00 | CONSULT ---
Consult Consult Specialty:: heme Referred by:: Dr. Myrick Reason for Consultation:: PVT thrombosis - History of Present Illness Chief Complaint: Abdominal pain History of Present Illness: 47F with hx cholecystectomy on 06/18/18 at [facility] admitted on 08/04 with abdominal pain and vomiting x 4 days. Imaging showed dilated CBD with stones s/ p removal of choledocholithiasis and sphincterotomy, stent via ERCP. Hospital course c/b gallstone pancreatitis. CTAP yesterday with development of short segment very narrow caliber thrombosed portal venous branch in the periphery of right hepatic lobe for which hematology is consulted. Pt has no prior hx of thrombosis and no family hx. Denies hx miscarriages. No bleeding issues except for menorrhagia. C/o continued abdominal pain. - Past Medical History Cardio/Vascular: Yes: HTN Gastrointestinal: Yes: Other (s/p cholecystomy june) Hepatobiliary: Yes: Cholelithiasis ...LMP: 07/05/18 ...: No Psych: Yes: Anxiety, Depression, Panic Musculoskeletal: Yes: Chronic low back pain - Past Surgical History Past Surgical History: Yes: Cholecystectomy (june) Additional Surgical History: Lumbar spine surgery, hammer toe surgery b/l feet - Alcohol/Substance Use Hx Alcohol Use: No History of Substance Use: reports: None - Smoking History Smoking history: Current every day smoker Aproximately how many cigarettes per day: 3 - Social History Usual Living Arrangement: Other ADL: Independent Occupation: Unemployed History of Recent Travel: No Home Medications - Allergies Allergies/Adverse Reactions: Allergies Allergy/AdvReac Type Severity Reaction Status Date / Time No Known Allergies Allergy Verified 08/04/18 03:07 - Home Medications Home Medications: Ambulatory Orders Diltiazem HCl [Diltiazem 24Hr Cd] 180 mg PO DAILY 08/04/18 Ibuprofen 800 mg PO PRN PRN 08/04/18 Levomilnacipran HCl [Fetzima] 80 mg PO DAILY 08/04/18 Losartan Potassium 100 mg PO DAILY 08/04/18 Mirtazapine [Remeron -] 45 mg PO DAILY 08/04/18 Family Disease History - Family Disease History Family Disease History: Diabetes: Father (: 68: Some form of cancer (not GI) ), Heart Disease: Father, Mother (Mother: : 78: Heart Problems. H&P lists breast cancer, however she did not tell that liza me.), Other: Father, Mother, Brother (2, healthy), Sister (1, healthy), Daughter (1, healthy) Review of Systems - Review of Systems Constitutional: reports: No Symptoms Cardiovascular: reports: No Symptoms Respiratory: reports: No Symptoms Gastrointestinal: reports: Abdominal Pain, Vomiting Neurological: reports: No Symptoms Hematology/Lymphatic: reports: No Symptoms Physical Exam Vital Signs: Vital Signs Temperature 98.3 F 08/10/18 18:00 Pulse Rate 70 08/10/18 18:00 Respiratory Rate 18 08/10/18 18:00 Blood Pressure 138/80 08/10/18 18:00 O2 Sat by Pulse Oximetry (%) 96 08/09/18 21:00 Constitutional: Yes: Well Nourished Eyes: Yes: Conjunctiva Clear Cardiovascular: Yes: Regular Rate and Rhythm Respiratory: Yes: Regular, CTA Bilaterally Gastrointestinal: Yes: Soft, Tenderness (mild). No: Distention, Palpable Mass Edema: No Labs: CBC, BMP 08/10/18 12:31 08/10/18 12:31 Assessment/Plan 47F with hx cholecystectomy on 06/18/18 admitted with choledocholithiasis s/p ERCP with removal of CBD stones, sphincterotomy, stent via ERCP. Hospital course c/b gallstone pancreatitis. 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 No prior hx of thrombosis. Agree with apixaban 10 mg PO BID x 7 days then 5 mg BID. Will likely need 3 months of anticoagulation. Would not pursue hypercoaguable w/u as event is provoked (surgery, gallstone pancreatitis, ERCP interventions)
[2018-08-11] MEDS: ONDANSETRON 4 MG/2 ML VIAL IVPUSH SCH ×3 (02:10→16:22)
[2018-08-11] MEDS: oxyCODONE HCL 5 MG TABLET PO PRN (06:47)
[2018-08-11] MEDS ORDERED: PT OWN MED DRAWER 7, Y5N ONE (09:04)
[2018-08-11] MEDS: POLYETHYLENE GLYCOL 3350 119 GM BTL PO SCH (09:32)
[2018-08-11] MEDS: CEFUROXIME AXETIL 500 MG TABLET PO SCH (09:32)
[2018-08-11] MEDS: APIXABAN 5 MG TABLET PO SCH (09:33)
[2018-08-11] MEDS: URSODIOL 300 MG CAPSULE PO SCH (09:33)
[2018-08-11] MEDS: LOSARTAN POTASSIUM 50 MG TABLET (FP) PO SCH (09:37)
--- NOTE | 2018-08-11 10:20 | PN ---
Progress Note, Physician Chief Complaint: Elevated LFT Acute gallbladder pancreatitis CBD stricture History of Present Illness: NAD tolerating PO intake c/o diffuse abd pain which is better today BM yesterday feels better today CT abd demonstrates portal vein thrombosis - Current Medication List Current Medications: Active Medications Apixaban (Eliquis -) 10 mg PO BID [facility] Stop: 08/17/18 11:14 Last Admin: 08/11/18 09:33 Dose: 10 mg Cefuroxime Axetil (Ceftin -) 500 mg PO BID [facility] Last Admin: 08/11/18 09:32 Dose: 500 mg Diltiazem HCl (Cardizem Cd -) 180 mg PO DAILY [facility] Last Admin: 08/11/18 09:37 Dose: 180 mg Docusate Sodium (Colace -) 300 mg PO HS [facility] Last Admin: 08/10/18 21:21 Dose: 300 mg Hydromorphone HCl (Dilaudid Vial -) 2 mg IM Q4H PRN PRN Reason: PAIN LEVEL 4-6 Losartan Potassium (Cozaar -) 100 mg PO DAILY [facility] Last Admin: 08/11/18 09:37 Dose: 100 mg Methylnaltrexone [place] (Relistor -) 12 mg SQ DAILY [facility] Last Admin: 08/10/18 10:25 Dose: 12 mg Mirtazapine (Remeron -) 45 mg PO HS [facility] Last Admin: 08/10/18 21:22 Dose: 45 mg Ondansetron HCl (Zofran Injection) 4 mg IVPUSH Q6H-IV [facility] Last Admin: 08/11/18 09:29 Dose: Not Given Oxycodone HCl (Roxicodone -) 10 mg PO Q6H PRN PRN Reason: PAIN LEVEL 7-10 Last Admin: 08/11/18 06:47 Dose: 10 mg Polyethylene Glycol (Miralax (For Daily Use) -) 17 gm PO DAILY [facility] Last Admin: 08/11/18 09:32 Dose: 17 grams Ursodiol (Actigal -) 300 mg PO BID [facility] Last Admin: 08/11/18 09:33 Dose: 300 mg Zolpidem Tartrate (Ambien -) 5 mg PO HS PRN PRN Reason: INSOMNIA Last Admin: 08/09/18 23:34 Dose: 5 mg - Objective Vital Signs: Vital Signs Temperature 98.5 F 08/11/18 06:00 Pulse Rate 61 08/11/18 06:00 Respiratory Rate 18 08/11/18 06:00 Blood Pressure 112/74 08/11/18 06:00 O2 Sat by Pulse Oximetry (%) 99 08/11/18 09:00 Constitutional: Yes: Well Nourished, No Distress, Calm Cardiovascular: Yes: Regular Rate and Rhythm Respiratory: Yes: Regular Gastrointestinal: Yes: Normal Bowel Sounds, Soft Genitourinary: Yes: WNL Musculoskeletal: Yes: WNL Extremities: Yes: WNL Edema: No Peripheral Pulses WNL: Yes Neurological: Yes: Alert, Oriented Psychiatric: Yes: Alert, Oriented Labs: CBC, BMP 08/10/18 12:31 08/10/18 12:31 INR, PTT INR 1.00 (0.83-1.09) 08/10/18 12:31 Problem List - Problems (1) Abdominal pain Assessment/Plan: +flatus, + belching -Last BM 08/01 -miralax daily -Relistor -CT abd -Seen by GI Code(s): R10.9 - UNSPECIFIED ABDOMINAL PAIN (2) Portal vein thrombosis Assessment/Plan: -Hematology consult appreciated -Start eliquis 10 mg po BID x 7 days, then convert to 5 mg po BID, for at least 3 months -GI on board -F/U with hematology outpatient Code(s): I81 - PORTAL VEIN THROMBOSIS Assessment/Plan (1) Abnormal LFTs Assessment/Plan: -GI on board -LFTs trending down Code(s): R94.5 - ABNORMAL RESULTS OF LIVER FUNCTION STUDIES (2) Common bile duct (CBD) stricture Assessment/Plan: -GI on board -ERCP done, unable to remove large stones, stenting done. -T bili normalized -Actigall BID -to F/U with Dr Dylan Bird at [facility] for outpatient US Lithotripsy -Abdominal MRI shows numerous CBD stones/choledocolithiasis with intra and extrahepatic biliary ductal dilation with extensive periportal and brandon hepatis edema with edema and fluid extending inferiorly along 2nd portion of duodenum into the hepatorenal fossa with fullness in the pancreatic head but without pancreatic ductal dilation -surgical consult Code(s): K83.1 - OBSTRUCTION OF BILE DUCT (3) HTN (hypertension) Assessment/Plan: -Diltiazem and Losartan Code(s): I10 - ESSENTIAL (PRIMARY) HYPERTENSION (4) Right upper quadrant abdominal pain Assessment/Plan: -GI and ID on board -D/C zosyn, switch to oral abx cefuroxime 500 mg po bid x 5 days -no leukocytosis Code(s): R10.11 - RIGHT UPPER QUADRANT PAIN (5) Acute gallstone pancreatitis Assessment/Plan: -GI on board -ERCP done -Follow up with Dr Dylan Bird at [facility] for f/u lithotripsy -Actigall -ERCP done, unable to remove large stones, stenting done. -Abdominal MRI shows numerous CBD stones/choledocolithiasis with intra and extrahepatic biliary ductal dilation with extensive periportal and portal hepatitis edema with edema and fluid extending inferiorly along 2nd portion of duodenum into the hepatorenal fossa with fullness in the pancreatic head but without pancreatic ductal dilation -surgical consult Code(s): K85.10 - BILIARY ACUTE PANCREATITIS WITHOUT NECROSIS OR INFECTION
--- NOTE | 2018-08-11 12:01 | PN ---
Progress Note, Physician History of Present Illness: Feeling well. Some improvement in abdominal pain since yesterday after BM. Denies bleeding. - Current Medication List Current Medications: Active Medications Apixaban (Eliquis -) 10 mg PO BID [facility] Stop: 08/17/18 11:14 Last Admin: 08/11/18 09:33 Dose: 10 mg Cefuroxime Axetil (Ceftin -) 500 mg PO BID [facility] Last Admin: 08/11/18 09:32 Dose: 500 mg Diltiazem HCl (Cardizem Cd -) 180 mg PO DAILY [facility] Last Admin: 08/11/18 09:37 Dose: 180 mg Docusate Sodium (Colace -) 300 mg PO HS [facility] Last Admin: 08/10/18 21:21 Dose: 300 mg Hydromorphone HCl (Dilaudid Vial -) 2 mg IM Q4H PRN PRN Reason: PAIN LEVEL 4-6 Losartan Potassium (Cozaar -) 100 mg PO DAILY [facility] Last Admin: 08/11/18 09:37 Dose: 100 mg Methylnaltrexone Mize (Relistor -) 12 mg SQ DAILY [facility] Last Admin: 08/10/18 10:25 Dose: 12 mg Mirtazapine (Remeron -) 45 mg PO HS [facility] Last Admin: 08/10/18 21:22 Dose: 45 mg Ondansetron HCl (Zofran Injection) 4 mg IVPUSH Q6H-IV [facility] Last Admin: 08/11/18 09:29 Dose: Not Given Oxycodone HCl (Roxicodone -) 10 mg PO Q6H PRN PRN Reason: PAIN LEVEL 7-10 Last Admin: 08/11/18 06:47 Dose: 10 mg Polyethylene Glycol (Miralax (For Daily Use) -) 17 gm PO DAILY [facility] Last Admin: 08/11/18 09:32 Dose: 17 grams Ursodiol (Actigal -) 300 mg PO BID [facility] Last Admin: 08/11/18 09:33 Dose: 300 mg Zolpidem Tartrate (Ambien -) 5 mg PO HS PRN PRN Reason: INSOMNIA Last Admin: 08/09/18 23:34 Dose: 5 mg - Objective Vital Signs: Vital Signs Temperature 98.5 F 08/11/18 06:00 Pulse Rate 61 08/11/18 06:00 Respiratory Rate 18 08/11/18 06:00 Blood Pressure 112/74 08/11/18 06:00 O2 Sat by Pulse Oximetry (%) 99 08/11/18 09:00 Constitutional: Yes: No Distress, Calm Eyes: Yes: Conjunctiva Clear Respiratory: Yes: Regular, CTA Bilaterally Gastrointestinal: Yes: Normal Bowel Sounds, Soft. No: Palpable Mass, Tenderness Edema: No Labs: CBC, BMP 08/10/18 12:31 08/10/18 12:31 INR, PTT INR 1.00 (0.83-1.09) 08/10/18 12:31 Assessment/Plan 47F with hx cholecystectomy on 06/18/18 admitted with choledocholithiasis s/p ERCP with removal of CBD stones, sphincterotomy, stent via ERCP. Hospital course c/b gallstone pancreatitis. Planned for outpatient lithotripsy. 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 No prior hx of thrombosis. Agree with apixaban 10 mg PO BID x 7 days then 5 mg BID. Will likely need 3 months of anticoagulation. Would not pursue hypercoaguable w/u as event is provoked (surgery, gallstone pancreatitis, ERCP interventions) Should follow-up with hematology in 3 months prior to stopping AC
[2018-08-11 14:59] VITALS: BP 134/52; PULSE 72; TEMP 98
[2018-08-11] MEDS: Methylnaltrexone Bromide 12 MG/0.6 ML KIT SQ SCH (16:23)
== END 2018-08-11 15:53 | disposition home or self-care (01) | DRG 282 ==
LOC: JER 21:32 → JERBED 08-04 02:55 → J7W 08-04 04:37
PROVIDERS: ADMIT Family Medicine; ATTEND Family Medicine
PROC: BF12YZZ Fluoroscopy of Gallbladder using Other Contrast (ICD-10-PCS; 2018-08-05)
PROC: 0F798DZ Dilation of Common Bile Duct with Intraluminal Device, Via Natural or Artificial Opening Endoscopic (ICD-10-PCS; 2018-08-05)
PROC: 0FC98ZZ Extirpation of Matter from Common Bile Duct, Via Natural or Artificial Opening Endoscopic (ICD-10-PCS; principal; 2018-08-05 11:00)
DX: K85.10 Biliary acute pancreatitis without necrosis or infection (principal); I10 Essential (primary) hypertension; F41.8 Other specified anxiety disorders; M54.5 Low back pain; R11.10 Vomiting, unspecified; R94.5 Abnormal results of liver function studies; K83.1 Obstruction of bile duct; R10.11 Right upper quadrant pain; K80.20 Calculus of gallbladder without cholecystitis without obstruction; I81 Portal vein thrombosis; F41.0 Panic disorder [episodic paroxysmal anxiety]
CPT/HCPCS: 36415; 74160-TC; 74177-TC; 74181-TC; 76000-TC-FY; 76705-TC; 80048; 80053; 80076; 82150; 82248; 82962; 83690; 84703; 85025; 85027; 85610; 85730; 86140; 86850; 86900; 86901; 87086; 99281-25

== ENCOUNTER 2023-05-02 12:54 | Observation (INO) | payer OTHER ==
[2023-05-02 13:03] VITALS: BMI 24.3
[2023-05-02] MEDS ORDERED: ACETAMINOPHEN INJECTION 100 ML IVPB ONE (14:07)
[2023-05-02] MEDS: ACETAMINOPHEN 1000 MG/100 ML BAG IVPB ONE (14:26)
[2023-05-02 14:35] LABS: BASO % 0.5 % (0-2.0); EOS % 1.1 % (0-4.5); HEMOGLOBIN 13.5 GM/dL (10.7-15.3); LYMPH % 36.5 % (8-40); MCH 29.9 pg (25.7-33.7); MEAN CELL VOLUME 90.5 fl (80-96); MONO % 6.6 % (3.8-10.2); NEUT % 55.3 % (42.8-82.8); PLATELET COUNT 184 10^3/uL (134-434); RBC 4.53 M/mm3 (3.60-5.2); RDW 13.9 % (11.6-15.6); URINE APPEARANCE CLEAR; URINE BILIRUBIN NEGATIVE (NEGATIVE); URINE COLOR YELLOW; URINE GLUCOSE (UA) NEGATIVE (NEGATIVE); URINE KETONE NEGATIVE (NEGATIVE); URINE LEUK ESTERASE NEGATIVE (NEGATIVE); URINE NITRITE NEGATIVE (NEGATIVE); URINE PROTEIN NEGATIVE (NEGATIVE); URINE UROBILINOGEN 0.2 mg/dL (0.2-1.0); WHITE BLOOD COUNT 7.9 K/mm3 (4.0-10.0)
[2023-05-02 14:47] LABS: METHADONE, UR NEGATIVE (NEGATIVE); OPIATES, URI NEGATIVE (NEGATIVE); PHENCYCLIDINE,URINE NEGATIVE (NEGATIVE); URINE BARBITURATES NEGATIVE (NEGATIVE); URINE BENZODIAZEPINES NEGATIVE (NEGATIVE)
[2023-05-02 14:48] LABS: COCAINE, UR NEGATIVE (NEGATIVE); URINE AMPHETAMINES NEGATIVE (NEGATIVE)
[2023-05-02 14:54] LABS: POTASSIUM 4.5 mmol/L (3.5-5.1)
[2023-05-02 14:56] LABS: CALCIUM 9.9 mg/dL (8.5-10.1)
[2023-05-02 14:57] LABS: ALBUMIN 3.6 g/dl (3.4-5.0); BLOOD UREA NITROGEN 11.4 mg/dL (7-18)
[2023-05-02 15:00] LABS: CREATININE 0.6 mg/dL (0.55-1.3)
[2023-05-02 15:02] LABS: BILIRUBIN,TOTAL 0.3 mg/dL (0.2-1); TOT PROT 6.8 g/dl (6.4-8.2)
[2023-05-02] MEDS ORDERED: MIRTAZAPINE 15 MG TABLET (FP) ONE (22:54)
[2023-05-02] MEDS: MIRTAZAPINE 30 MG TABLET PO SCH (22:54)
[2023-05-03 08:07] LABS: BASO % 0.8 % (0-2.0); EOS % 3.9 % (0-4.5); HEMATOCRIT 40.1 % (32.4-45.2); LYMPH % 40.7 % (8-40); MCH 29.3 pg (25.7-33.7); MCHC 32.4 g/dl (32.0-36.0); MEAN CELL VOLUME 90.4 fl (80-96); MONO % 8.7 % (3.8-10.2); NEUT % 45.9 % (42.8-82.8); PLATELET COUNT 170 10^3/uL (134-434); RBC 4.44 M/mm3 (3.60-5.2); RDW 13.9 % (11.6-15.6); WHITE BLOOD COUNT 6.8 K/mm3 (4.0-10.0)
[2023-05-03 08:18] LABS: POTASSIUM 4.9 mmol/L (3.5-5.1)
[2023-05-03 08:22] LABS: ALBUMIN 3.3 g/dl (3.4-5.0); BLOOD UREA NITROGEN 18.6 mg/dL (7-18); CALCIUM 9.5 mg/dL (8.5-10.1)
[2023-05-03 08:24] LABS: CREATININE 0.6 mg/dL (0.55-1.3); PHOSPHOROUS 4.3 mg/dL (2.5-4.9)
[2023-05-03 08:26] LABS: BILIRUBIN,TOTAL 0.4 mg/dL (0.2-1); TOT PROT 6.3 g/dl (6.4-8.2)
[2023-05-03] MEDS ORDERED: LORazepam 2 MG/ML SDV VIAL IVPUSH PRN (09:40)
[2023-05-03] MEDS: ACETAMINOPHEN 325 MG TABLET (FP) PO PRN (10:42)
[2023-05-03] MEDS ORDERED: MIRTAZAPINE 15 MG TABLET (FP) ONE (21:56)
[2023-05-03] MEDS: MIRTAZAPINE 15 MG TABLET (FP) PO SCH (22:21)
[2023-05-04 06:47] VITALS: RESP 18
[2023-05-04 11:29] VITALS: BP 117/70; PULSE 58; TEMP 97.9
== END 2023-05-04 13:20 | disposition home health service (06) ==
LOC: JER 12:54 → JERBED 16:11 → J8W 17:05
PROVIDERS: ADMIT Internal Medicine; ATTEND Internal Medicine
PROC: 3E033NZ Introduction of Analgesics, Hypnotics, Sedatives into Peripheral Vein, Percutaneous Approach (ICD-10-PCS; principal; 2023-05-02)
PROC: 3E033NZ Introduction of Analgesics, Hypnotics, Sedatives into Peripheral Vein, Percutaneous Approach (ICD-10-PCS; 2023-05-02)
DX: R41.82 Altered mental status, unspecified (principal); F32.9 Major depressive disorder, single episode, unspecified; R10.2 Pelvic and perineal pain; E78.5 Hyperlipidemia, unspecified; I10 Essential (primary) hypertension; K80.20 Calculus of gallbladder without cholecystitis without obstruction; F41.0 Panic disorder [episodic paroxysmal anxiety]; G89.29 Other chronic pain; M54.50 Low back pain, unspecified; Z72.0 Tobacco use; Z90.49 Acquired absence of other specified parts of digestive tract
CPT/HCPCS: 0241U-QW; 36415; 70450-TC; 70551-TC; 71046-TC-FY; 74177-TC; 80053; 80307; 81003; 82607; 83036; 83735; 84100; 84443; 85025; 86780; 87086; 93005; 93010; 96374; 99285-25; G0378; J0131; Q9967

== ENCOUNTER 2023-07-13 04:22 | Day surgery (SDC) | payer OTHER ==
[2023-07-04 13:34] VITALS: BMI 24.3
[2023-07-13] MEDS ORDERED: LIDOCAINE HCL/PF 1% SDV 5ML VIAL ONE (07:08)
[2023-07-13] MEDS ORDERED: FENTANYL CITRATE/PF 50 MCG/ML VIAL ONE ×2 (09:00→09:38)
[2023-07-13] MEDS ORDERED: MIDAZOLAM HCL 2 MG/2 ML SINGLE DOSE VIAL ONE (09:00)
[2023-07-13] MEDS ORDERED: CLINDAMYCIN PHOSPHATE 600 MG/4 ML VIAL ONE (09:01)
[2023-07-13] MEDS: CLINDAMYCIN PHOSPHATE 600 MG/4 ML VIAL IVPB ONE (09:09)
[2023-07-13] MEDS: LIDOCAINE HCL 1% PRESERVATIVE FREE - 30ML VIAL IJ ONE ×2 (09:19)
[2023-07-13] MEDS: LIDOCAINE HCL/PF 2% SDV 5ML VIAL INF ONE ×2 (09:29)
[2023-07-13] MEDS ORDERED: ACETAMINOPHEN 500 MG TABLET (FP) PO PRN (09:55)
[2023-07-13 10:03] VITALS: RESP 16
[2023-07-13 12:14] VITALS: BP 124/70; PULSE 70; TEMP 98
== END 2023-07-13 12:15 | disposition home or self-care (01) ==
LOC: JASU-SURG 04:22
PROVIDERS: ATTEND Pain Medicine Pain Medicine
PROC: 00HU3MZ Insertion of Neurostimulator Lead into Spinal Canal, Percutaneous Approach (ICD-10-PCS; principal; 2023-07-13 09:00)
DX: M96.1 Postlaminectomy syndrome, not elsewhere classified (principal)
CPT/HCPCS: 63650; C1897; 76000-TC-FY; 81025; C1889

== ENCOUNTER 2024-01-11 03:59 | Day surgery (SDC) | payer OTHER ==
[2024-01-08 13:17] VITALS: BMI 24.3
[~2024-01-11 03:59] MED LIST: ACETAMINOPHEN 500 MG TABLET (FP) PO PRN
[2024-01-11 06:30] VITALS: RESP 18
[2024-01-11] MEDS ORDERED: BUPIVACAINE HCL/PF 0.25% (2.5MG/ML) 10 ML VIAL ONE (07:13)
[2024-01-11] MEDS ORDERED: LIDOCAINE HCL/PF 1% SDV 5ML VIAL ONE (07:14)
[2024-01-11] MEDS ORDERED: LIDOCAINE HCL/PF 2% SDV 5ML VIAL ONE (07:30)
[2024-01-11] MEDS ORDERED: DEXMEDETOMIDINE HCL 200 MCG/2 ML IVPB ONE (07:55)
[2024-01-11] MEDS ORDERED: PROPOFOL 20 ML ONE (08:08)
[2024-01-11] MEDS ORDERED: MIDAZOLAM HCL 2 MG/2 ML SINGLE DOSE VIAL ONE (08:09)
[2024-01-11] MEDS: ceFAZolin SODIUM 1 GM VIAL IVPB ONE (08:19)
[2024-01-11 09:26] VITALS: TEMP 97.7
[2024-01-11 10:32] VITALS: BP 105/48; PULSE 57
== END 2024-01-11 10:37 | disposition home or self-care (01) ==
LOC: JASU-SURG 03:59
PROVIDERS: ATTEND Pain Medicine Pain Medicine
PROC: 00HU3MZ Insertion of Neurostimulator Lead into Spinal Canal, Percutaneous Approach (ICD-10-PCS; principal; 2024-01-11 08:00)
DX: M96.1 Postlaminectomy syndrome, not elsewhere classified (principal)
CPT/HCPCS: 63650; C1897; 76000-TC-FY